=== PATIENT | male | born 1925 | race Hispanic/Latino ===

== ENCOUNTER 2016-09-25 03:05 | Inpatient (IN) | payer MEDICARE ==
[2016-09-25] MEDS ORDERED: ATIVAN IV ONE ×3 (03:40→06:16)
[2016-09-25 04:23] LABS: Basophils % (Auto) 0.4 % (0.0-1.8); Eosinophils % (Auto) 0.4 % (0.0-4.3); Hemoglobin 13.6 gm/dl (11.8-15.2); Mean Corpuscular HGB Conc 34 % (32-34); Mean Corpuscular Hemoglobin 29 pg (28-32); Mean Corpuscular Volume 86 fl (84-94); Platelet Count 226 K/mm3 (140-440); Red Blood Count 4.64 M/mm3 (3.65-5.03); White Blood Count 9.3 K/mm3 (4.5-11.0)
[2016-09-25 04:36] LABS: Alanine Aminotransferase 7 units/L (7-56); Albumin 4.1 g/dL (3.9-5); Albumin/Globulin Ratio 1.6 %; Alkaline Phosphatase 94 units/L (35-129); Anion Gap 20 mmol/L; BUN/Creatinine Ratio 22.22; Bilirubin,Total 0.3 mg/dL (0.1-1.2); Blood Urea Nitrogen 20 mg/dL (9-20); Calcium 8.6 mg/dL (8.4-10.2); Carbon Dioxide 23 mmol/L (22-30); Chloride 103.7 mmol/L (98-107); Glucose 135 mg/dL (75-100); Magnesium 1.9 mg/dL (1.7-2.3); Potassium 3.4 mmol/L (3.6-5.0); Sodium 143 mmol/L (137-145); Total Protein 6.7 g/dL (6.3-8.2)
[2016-09-25] MEDS ORDERED: ATIVAN IM ONE (04:45)
[2016-09-25] MEDS ORDERED: NACL 0.9% 1000 ML 1,000 ML IV ONE (06:16)
--- NOTE | 2016-09-25 07:04 | Cat Scan Report ---
FINAL REPORT EXAM: CT HEAD/BRAIN WO CON HISTORY: ams TECHNIQUE: CT of the head was performed. No intravenous contrast was administered. PRIORS: None. FINDINGS: The inferior images through the skullbase region are limited by motion artifact. There is moderate cerebral atrophy. There is no evidence of intracranial hemorrhage. There is no edema, mass effect or midline shift. There are no abnormal extra-axial fluid collections. The ventricles are appropriate for brain volume. There is no skull fracture seen. The visualized aspects of the sinuses are clear. IMPRESSION: There is no acute intracranial abnormality identified. Study is mildly limited by motion artifact..
--- NOTE | 2016-09-25 07:06 | Cat Scan Report ---
FINAL REPORT EXAM: CT CERVICAL SPINE WO CON HISTORY: fall TECHNIQUE: A noncontrast CT of the cervical spine was performed. Coronal and sagittal reformatted images were obtained. PRIORS: None. FINDINGS: Vertebral body heights and alignment are maintained. There is no evidence of acute fracture. There are moderate degenerative changes involving the facet joints bilaterally. There is no evidence of significant spinal stenosis. IMPRESSION: There is no evidence of cervical spine fracture or subluxation.
--- NOTE | 2016-09-25 07:13 | Emergency Department Report ---
HPI - General Chief Complaint: Altered Mental Status Time Seen by Provider: 09/25/16 06:03 - HPI HPI: This is a 89-year-old male who presents to the emergency department from home via EMS with the complaint of altered mental status and falls. The patient's son is bedside. The patient is a very poor historian currently. Normally the patient takes care of both himself and his elderly . The son says that the patient usually takes Xanax at night at 0.25 mg to help him sleep but he has been out of this medication. For this reason the patient took 4 Benadryl [id number] at about 8 PM and when this did not work he took one of his sons 100 mg amitriptyline at 9 PM. Much later in the evening the son was outside when he heard a thump. The son says that the fall was about 2:00 AM and EMS was called shortly after that. He went in to find that his father had fallen and was on the ground and was having trouble getting back up. Since that time the patient has been confused. He has a past medical history of arthritis, prostate cancer, hypertension. Patient does not currently have a primary care doctor but recently has seen Dr. Heath and Dr. Simon. ED Past Medical Hx - Past Medical History Previous Medical History?: Yes Hx Hypertension: Yes Hx of Cancer: Yes (Prostate) Hx Arthritis: Yes Hx Asthma: No Additional medical history: hernia - Surgical History Past Surgical History?: Yes Additional Surgical History: tonsillectomy. hernia repair. prostate - Social History Smoking Status: Never Smoker Substance Use Type: None - Medications Home Medications: Home Medications Medication Instructions Recorded Confirmed Last Taken Type ALPRAZolam [Xanax TAB] 0.25 mg PO BID PRN 06/27/15 06/27/15 Unknown History Docusate Sodium [Colace CAP] 100 mg PO BID PRN #30 capsule 06/27/15 Unknown Rx Lactulose [Cephulac] 20 gm PO QDAY PRN #90 ml 06/27/15 Unknown Rx Tamsulosin [Flomax] 0.4 mg PO QDAY 06/27/15 06/27/15 Unknown History traMADol [Ultram] 50 mg PO Q6HR PRN 06/27/15 06/27/15 Unknown History ED Review of Systems ROS: Stated complaint: LOC/FALL Other details as noted in HPI Comment: All other systems reviewed and negative Physical Exam - Physical Exam Vital Signs: Vital Signs 09/25/16 09/25/16 03:24 03:35 Temperature 97.4 F L Pulse Rate 122 H Respiratory 24 31 H Rate Blood Pressure 135/59 Blood Pressure 135/59 [Right] O2 Sat by Pulse 95 94 Oximetry Physical Exam: GENERAL: Patient is elderly appearing and altered. HEENT: Normocephalic. Atraumatic. Pupils equal reactive to light bilaterally. Patient has moist mucous membranes. NECK: Supple. Trachea is midline. CHEST/LUNGS: Clear to auscultation. There is no respiratory distress noted. HEART/CARDIOVASCULAR: Regular. There is mild to moderate tachycardia. There is no gallop rub or murmur. ABDOMEN: Abdomen is soft, nontender. Patient has normal bowel sounds. There is no abdominal distention. SKIN: There is no rash. There is no diaphoresis. NEURO: Patient is awake and agitated. Patient gets combative. The patient is not cooperative. No obvious facial droop. Patient is nonverbal. MUSCULOSKELETAL: There is no tenderness or deformity. There is no limitation range of motion as patient is seen moving all of his extremities. There is no evidence of acute injury. ED Course Vital Signs 09/25/16 09/25/16 03:24 03:35 Temperature 97.4 F L Pulse Rate 122 H Respiratory 24 31 H Rate Blood Pressure 135/59 Blood Pressure 135/59 [Right] O2 Sat by Pulse 95 94 Oximetry ED Medical Decision Making - Lab Data Result diagrams: 09/25/16 03:56 09/25/16 03:56 - EKG Data -: EKG Interpreted by Me - EKG Data When compared to previous EKG there are: changes noted (previous EKG did not show sustained tachycardia) Interpretation: other (sinus tachycardia at 125 bpm, prolonged [place] interval indicating first-degree AV block, Q waves to the septal leads, nonspecific ST-T changes) - Radiology Data Radiology results: report reviewed, image reviewed interpreted by me: Chest x-ray does not show any obvious pneumonia, pneumothorax, pleural effusions , osseous abnormalities or any acute process. X-ray of the pelvis does not show any fracture, dislocation, subluxation or any acute process. CT of the head does not show any bleed, shift, mass, skull fracture or any acute process. CT of the cervical spine does not show any fracture, subluxation or any acute process. - Medical Decision Making 89-year-old male presents to the emergency department after having a fall last night and some altered mental status. Patient had taken multiple doses of Benadryl and 1 amitriptyline so it is possible that it is an effect of that, however the patient took them around 8 or 9 PM last night and the medications should have worn off. A CT of the head was done that did not show any bleed, shift, mass or any acute process. CT of the cervical spine, x-ray of the pelvis and chest did not show any acute process either. Patient's labs are mostly unremarkable and did not show any etiology of the patient's altered mental status. Since the patient is usually ambulatory, cognizant and able to complete his own ADLs, the patient will be admitted to hospital for further evaluation and has been accepted for admission by the hospitalist. - Differential Diagnosis brain bleed, skull fracture, anemia, IA Critical Care Time: No Critical care attestation.: If time is entered above; I have spent that time in minutes in the direct care of this critically ill patient, excluding procedure time. ED Disposition Clinical Impression: Altered mental status Qualifiers: Altered mental status type: unspecified Qualified Code(s): R41.82 - Altered mental status, unspecified Fall Qualifiers: Encounter type: initial encounter Qualified Code(s): W19.XXXA - Unspecified fall, initial encounter Disposition: OP ADMITTED IP TO THIS HOSP Is pt being admited?: Yes Condition: Fair Time of Disposition: 09:31
[2016-09-25 07:50] LABS: Urine Drugs of Abuse Note Disclamer
[2016-09-25 08:14] LABS: Bacteria,Urine 2+ /HPF (Negative); Bilirubin,Urine NEG (Negative); Blood,Urine NEG (Negative); Ketones,Urine NEG (Negative); Leukocyte Esterase,Urine NEG (Negative); Mucus,Urine FEW /HPF; Nitrite,Urine NEG (Negative); Protein,Urine <15 mg/dL mg/dL (Negative); Urobilinogen,Urine < 2.0 mg/dL (<2.0)
[2016-09-25 08:16] LABS: WBC,Urine < 1.0 /HPF (0.0-6.0)
--- NOTE | 2016-09-25 09:22 | XRay Report ---
Portable supine chest: There is a generally coarse and diffuse interstitial pulmonary pattern. No pulmonary nodule or infiltrate. The heart is normal in size. No vascular congestion identified. Impression: Chronic appearing lung disease. No acute finding suspected. AP pelvis: Prostate therapy seeds are present. The soft tissues otherwise appear unremarkable. The bones are well-mineralized. No fractures and no displacement is noted. Impression: No traumatic changes.
[2016-09-25] MEDS ORDERED: ASPIRIN PR ONE (10:37)
[2016-09-25] MEDS ORDERED: HEPARIN 10,000 UNITS/10 ML IV ONE (10:41)
[2016-09-25] MEDS ORDERED: HEPARIN/ 0.45% NACL-25,000 UNIT/500 ML 500 ML IV SCH (11:00)
[2016-09-25 11:38] LABS: Partial Thromboplastin Time 23.9 Sec. (24.2-36.6)
[2016-09-25] MEDS ORDERED: CEPHULAC PO PRN (14:27)
[2016-09-25] MEDS ORDERED: COLACE PO PRN (14:27)
[2016-09-25] MEDS ORDERED: TYLENOL PO PRN (14:28)
[2016-09-25] MEDS ORDERED: DULCOLAX PR PRN (14:28)
[2016-09-25] MEDS ORDERED: ZOFRAN IV PRN (14:28)
[2016-09-25] MEDS ORDERED: MILK OF MAGNESIA PO PRN (14:28)
--- NOTE | 2016-09-25 14:36 | History and Physical Report ---
History of Present Illness Chief complaint: fall History of present illness: This is an elderly man who was brought in by his son after his son. From, from his father on the floor. Of note father is currently somewhat confused but his mentation is improving. He notes that his father had taken multiple doses of Benadryl and Xanax for sleep at night. And after his father fell he does not think his father hit head his father was somewhat confused and then became agitated. He denies any chest pain or shortness of breath or palpitations, his father has not had any episodes of this in the past in fact his father actually usually cares for his elderly , he is usually competent at baseline Past History Past Medical History: other (hypertension prostate cancer osteoarthritis) Past Surgical History: Other (tonsillectomy, hernia repair, and prostate surgery ) Social history: no significant social history Family history: no significant family history Medications and Allergies Allergies Allergy/AdvReac Type Severity Reaction Status Date / Time codeine Allergy Unknown Verified 06/27/15 14:25 Home Medications Medication Instructions Recorded Confirmed Last Taken Type ALPRAZolam [Xanax TAB] 0.25 mg PO BID PRN 06/27/15 09/25/16 Unknown History Docusate Sodium [Colace CAP] 100 mg PO BID PRN #30 capsule 06/27/15 09/25/16 Unknown Rx Lactulose [Cephulac] 20 gm PO QDAY PRN #90 ml 06/27/15 09/25/16 Unknown Rx Tamsulosin [Flomax] 0.4 mg PO QDAY 06/27/15 09/25/16 Unknown History traMADol [Ultram] 50 mg PO Q6HR PRN 06/27/15 09/25/16 Unknown History Active Meds: Active Medications Sodium Chloride (Nacl 0.9% 1000 Ml) 1,000 mls @ 100 mls/hr IV ONCE ONE Stop: 09/25/16 16:15 Heparin Sodium/Sodium Chloride (Heparin/ 0.45% Nacl-25,000 Unit/500 Ml) 500 mls @ 15 mls/hr IV TITRATE WANDA; 750 UNITS/HR PRN Reason: Protocol Last Admin: 09/25/16 12:09 Dose: 15 mls/hr Review of Systems All systems: negative Constitutional: weakness Cardiovascular: lightheadedness, no chest pain Neurological: other (confusion) Exam - Constitutional Vitals: Temp Pulse Resp BP Pulse Ox 97.4 F L 115 H 24 113/57 90 09/25/16 03:24 09/25/16 07:37 09/25/16 07:37 09/25/16 07:37 09/25/16 07:37 General appearance: Present: no acute distress, well-nourished - EENT Eyes: Present: PERRL ENT: hearing intact, clear oral mucosa - Neck Neck: Present: supple, normal ROM - Respiratory Respiratory effort: normal Respiratory: bilateral: CTA - Cardiovascular Heart Sounds: Present: S1 & S2. Absent: rub, click - Extremities Extremities: pulses symmetrical, No edema Peripheral Pulses: within normal limits - Abdominal General gastrointestinal: Present: soft, non-tender, non-distended, normal bowel sounds Male genitourinary: Present: normal - Integumentary Integumentary: Present: clear, warm, dry - Musculoskeletal Musculoskeletal: gait normal, strength equal bilaterally - Psychiatric Psychiatric: appropriate mood/affect, intact judgment & insight - Neurologic Neurologic: CNII-XII intact, moves all extremities, other (altered, somnolent, confused) Results - Labs CBC & Chem 7: 09/26/16 05:08 09/26/16 05:08 Labs: Laboratory Last Values WBC 9.3 K/mm3 (4.5-11.0) 09/25/16 03:56 RBC 4.64 M/mm3 (3.65-5.03) 09/25/16 03:56 Hgb 13.6 gm/dl (11.8-15.2) 09/25/16 03:56 Hct 40.0 % (35.5-45.6) 09/25/16 03:56 MCV 86 fl (84-94) 09/25/16 03:56 MCH 29 pg (28-32) 09/25/16 03:56 MCHC 34 % (32-34) 09/25/16 03:56 RDW 14.0 % (13.2-15.2) 09/25/16 03:56 Plt Count 226 K/mm3 (140-440) 09/25/16 03:56 Lymph % (Auto) 7.5 % (13.4-35.0) L 09/25/16 03:56 [place] % (Auto) 4.4 % (0.0-7.3) 09/25/16 03:56 Eos % (Auto) 0.4 % (0.0-4.3) 09/25/16 03:56 Baso % (Auto) 0.4 % (0.0-1.8) 09/25/16 03:56 Lymph # 0.7 K/mm3 (1.2-5.4) L 09/25/16 03:56 [place] # 0.4 K/mm3 (0.0-0.8) 09/25/16 03:56 Eos # 0.0 K/mm3 (0.0-0.4) 09/25/16 03:56 Baso # 0.0 K/mm3 (0.0-0.1) 09/25/16 03:56 Seg Neutrophils % 87.3 % (40.0-70.0) H 09/25/16 03:56 Seg Neutrophils # 8.1 K/mm3 (1.8-7.7) H 09/25/16 03:56 PT 13.1 Sec. (12.2-14.9) 09/25/16 11:00 INR 1.00 (0.87-1.13) 09/25/16 11:00 APTT 23.9 Sec. (24.2-36.6) L 09/25/16 11:00 Sodium 143 mmol/L (137-145) 09/25/16 03:56 Potassium 3.4 mmol/L (3.6-5.0) L 09/25/16 03:56 Chloride 103.7 mmol/L (98-107) 09/25/16 03:56 Carbon Dioxide 23 mmol/L (22-30) 09/25/16 03:56 Anion Gap 20 mmol/L 09/25/16 03:56 BUN 20 mg/dL (9-20) 09/25/16 03:56 Creatinine 0.9 mg/dL (0.8-1.5) 09/25/16 03:56 Estimated GFR > 60 ml/min 09/25/16 03:56 BUN/Creatinine Ratio 22.22 % 09/25/16 03:56 Glucose 135 mg/dL (75-100) H 09/25/16 03:56 Lactic Acid 1.0 mmol/L (0.7-2.0) 09/25/16 06:52 Calcium 8.6 mg/dL (8.4-10.2) 09/25/16 03:56 Magnesium 1.9 mg/dL (1.7-2.3) 09/25/16 03:56 Total Bilirubin 0.3 mg/dL (0.1-1.2) 09/25/16 03:56 AST 16 units/L (5-40) 09/25/16 03:56 ALT 7 units/L (7-56) 09/25/16 03:56 Alkaline Phosphatase 94 units/L (35-129) 09/25/16 03:56 Troponin T 0.359 ng/mL (0.00-0.029) H* 09/25/16 09:47 Total Protein 6.7 g/dL (6.3-8.2) 09/25/16 03:56 Albumin 4.1 g/dL (3.9-5) 09/25/16 03:56 Albumin/Globulin Ratio 1.6 % 09/25/16 03:56 Triglycerides 53 mg/dL (2-149) 09/25/16 09:47 Cholesterol 163 mg/dL (50-199) 09/25/16 09:47 LDL Cholesterol Direct 93 mg/dL (50-130) 09/25/16 09:47 HDL Cholesterol 60 mg/dL (40-59) H 09/25/16 09:47 Cholesterol/HDL Ratio 2.71 % 09/25/16 09:47 TSH 1.420 mlU/mL (0.270-4.200) 09/25/16 06:52 Urine Color Yellow (Yellow) 09/25/16 07:23 Urine Turbidity Cloudy (Clear) 09/25/16 07:23 Urine pH 7.0 (5.0-7.0) 09/25/16 07:23 Ur Specific [place] 1.017 (1.003-1.030) 09/25/16 07:23 Urine Protein <15 mg/dl mg/dL (Negative) 09/25/16 07:23 Urine Glucose (UA) 50 mg/dL (Negative) 09/25/16 07:23 Urine Ketones Neg mg/dL (Negative) 09/25/16 07:23 Urine Blood Neg (Negative) 09/25/16 07:23 Urine Nitrite Neg (Negative) 09/25/16 07:23 Urine Bilirubin Neg (Negative) 09/25/16 07:23 Urine Urobilinogen < 2.0 mg/dL (<2.0) 09/25/16 07:23 Ur Leukocyte Esterase Neg (Negative) 09/25/16 07:23 Urine WBC (Auto) < 1.0 /HPF (0.0-6.0) 09/25/16 07:23 Urine RBC (Auto) 4.0 /HPF (0.0-6.0) 09/25/16 07:23 U Epithel Cells (Auto) 2.0 /HPF (0-13.0) 09/25/16 07:23 Urine Bacteria (Auto) 2+ /HPF (Negative) 09/25/16 07:23 Amorphous Crystals 1+ 09/25/16 07:23 Urine Mucus Few /HPF 09/25/16 07:23 Salicylates < 0.3 mg/dL (2.8-20.0) L 09/25/16 03:56 Urine Opiates Screen Presumptive negative 09/25/16 07:23 Urine Methadone Screen Presumptive negative 09/25/16 07:23 Acetaminophen < 15.0 ug/mL (10.0-30.0) 09/25/16 03:56 Ur Barbiturates Screen Presumptive negative 09/25/16 07:23 Ur Phencyclidine Scrn Presumptive negative 09/25/16 07:23 Ur Amphetamines Screen Presumptive negative 09/25/16 07:23 U Benzodiazepines Scrn Presumptive negative 09/25/16 07:23 Urine Cocaine Screen Presumptive negative 09/25/16 07:23 U Marijuana (THC) Screen Presumptive negative 09/25/16 07:23 Drugs of Abuse Note Disclamer 09/25/16 07:23 Plasma/Serum Alcohol < 0.01 gm% (0-0.07) 09/25/16 03:56 - Imaging and Cardiology Chest x-ray: image reviewed (no abnormalities noted) CT Scan - head: image reviewed (limited due to motion artifact, but no abnormalities noted) Imaging and Cardiology: CT C-spine, reviewed by me, no fractures or subluxation noted Assessment and Plan Assessment and plan: This is an elderly man who presented status post fall found to be confused of note is that have been set that patient had been taking Xanax and Benadryl multiple doses of night at this occurred. Another concern it was medication related to him falling and being confused 1. NSTEMI Aspirin has been started, Patient that she denies chest pain, cycle troponins, cardiology consult, echocardiogram and stress test in the morning 2. Syncope May be secondary to end STEMI, versus iatrogenic due to using Benadryl and Xanax , continue cardiac workup as above, hold Xanax and Benadryl 3. Hypertension Currently normotensive, monitor blood pressure curve , no need for meds at this time 4. Prostate cancer Continue Flomax 5. Chronic constipation Continue stool softeners 6. DVT prophylaxis Lovenox subcutaneous Plan of care discussed with patient/family: Yes
[2016-09-25 15:44] LABS: Creatine Kinase MB 132.4 ng/mL (0.0-4.0)
[2016-09-25 18:28] LABS: Creatine Kinase MB 124.2 ng/mL (0.0-4.0)
[2016-09-25 21:01] LABS: Creatine Kinase MB 117.1 ng/mL (0.0-4.0)
[2016-09-26] MEDS ORDERED: BENADRYL IV ONE (02:57)
[2016-09-26 06:01] LABS: Basophils % (Auto) 0.5 % (0.0-1.8); Eosinophils % (Auto) 0.6 % (0.0-4.3); Hemoglobin 12.7 gm/dl (11.8-15.2); Mean Corpuscular HGB Conc 34 % (32-34); Mean Corpuscular Hemoglobin 29 pg (28-32); Mean Corpuscular Volume 86 fl (84-94); Platelet Count 206 K/mm3 (140-440); Red Blood Count 4.33 M/mm3 (3.65-5.03); Red Cell Distribution Width 14.3 % (13.2-15.2); White Blood Count 8.2 K/mm3 (4.5-11.0)
[2016-09-26 06:22] LABS: Anion Gap 18 mmol/L; Blood Urea Nitrogen 16 mg/dL (9-20); Calcium 8.2 mg/dL (8.4-10.2); Carbon Dioxide 21 mmol/L (22-30); Chloride 109.2 mmol/L (98-107); Glucose 96 mg/dL (75-100); Potassium 3.5 mmol/L (3.6-5.0); Sodium 145 mmol/L (137-145)
--- NOTE | 2016-09-26 11:27 | Progress Note ---
Assessment and Plan Assessment and plan: This is an elderly man who presented status post fall found to be confused of note is that have been set that patient had been taking Xanax and Benadryl multiple doses of night at this occurred. Another concern it was medication related to him falling and being confused 1. NSTEMI Aspirin has been started, Patient that she denies chest pain, cycle troponins, cardiology consult, echocardiogram , cardiology will likely do MPI when his troponins have cycled down 2. Syncope May be secondary to NSTEMI, versus iatrogenic due to using over the counter sleep meds and Xanax, continue cardiac workup as above, hold Xanax and Benadryl 3. Hypertension Currently normotensive, monitor blood pressure curve , hold all BP meds 4. Prostate cancer Continue Flomax 5. Chronic constipation Continue stool softeners 6. DVT prophylaxis Lovenox subcutaneous 7. Hypokalemia was repleted 8. Delireum continue restraints, and PRN meds for severe agitation only History Interval history: Patient continues to be confused and agitated. He has not been following commands and was screaming and cursing at nursing staff ; he refused all tests this am Hospitalist Physical - Physical exam Narrative exam: General: Patient appears well in no distress HEENT: MMM, EOMI cardiac: S1-S2 heard lungs: clear to auscultation, abdomen: soft, nontender, nondistended bowel sounds positive extremities: no edema clubbing or cyanosis Skin: no rash or lesion Neuro: Moves all extremities Psych: Patient is confused and agitated, - Constitutional Vitals: Temp Pulse Resp BP Pulse Ox 97.9 F 90 20 120/59 94 09/26/16 07:30 09/26/16 07:30 09/26/16 07:30 09/26/16 07:30 09/26/16 07:30 General appearance: Present: no acute distress, well-nourished Results - Labs CBC & Chem 7: 09/27/16 04:48 09/26/16 05:08 Labs: Laboratory Last Values WBC 8.2 K/mm3 (4.5-11.0) 09/26/16 05:08 RBC 4.33 M/mm3 (3.65-5.03) 09/26/16 05:08 Hgb 12.7 gm/dl (11.8-15.2) 09/26/16 05:08 Hct 37.0 % (35.5-45.6) 09/26/16 05:08 MCV 86 fl (84-94) 09/26/16 05:08 MCH 29 pg (28-32) 09/26/16 05:08 MCHC 34 % (32-34) 09/26/16 05:08 RDW 14.3 % (13.2-15.2) 09/26/16 05:08 Plt Count 206 K/mm3 (140-440) 09/26/16 05:08 Lymph % (Auto) 13.2 % (13.4-35.0) L 09/26/16 05:08 [place] % (Auto) 6.4 % (0.0-7.3) 09/26/16 05:08 Eos % (Auto) 0.6 % (0.0-4.3) 09/26/16 05:08 Baso % (Auto) 0.5 % (0.0-1.8) 09/26/16 05:08 Lymph # 1.1 K/mm3 (1.2-5.4) L 09/26/16 05:08 [place] # 0.5 K/mm3 (0.0-0.8) 09/26/16 05:08 Eos # 0.0 K/mm3 (0.0-0.4) 09/26/16 05:08 Baso # 0.0 K/mm3 (0.0-0.1) 09/26/16 05:08 Seg Neutrophils % 79.3 % (40.0-70.0) H 09/26/16 05:08 Seg Neutrophils # 6.5 K/mm3 (1.8-7.7) 09/26/16 05:08 PT 13.1 Sec. (12.2-14.9) 09/25/16 11:00 INR 1.00 (0.87-1.13) 09/25/16 11:00 APTT 23.9 Sec. (24.2-36.6) L 09/25/16 11:00 Heparin Anti-Xa Level 0.25 U.I./ml (0.3-0.7) L 09/26/16 00:50 Sodium 145 mmol/L (137-145) 09/26/16 05:08 Potassium 3.5 mmol/L (3.6-5.0) L 09/26/16 05:08 Chloride 109.2 mmol/L (98-107) H 09/26/16 05:08 Carbon Dioxide 21 mmol/L (22-30) L 09/26/16 05:08 Anion Gap 18 mmol/L 09/26/16 05:08 BUN 16 mg/dL (9-20) 09/26/16 05:08 Creatinine 0.8 mg/dL (0.8-1.5) 09/26/16 05:08 Estimated GFR > 60 ml/min 09/26/16 05:08 BUN/Creatinine Ratio 20.00 % 09/26/16 05:08 Glucose 96 mg/dL (75-100) 09/26/16 05:08 Lactic Acid 1.0 mmol/L (0.7-2.0) 09/25/16 06:52 Calcium 8.2 mg/dL (8.4-10.2) L 09/26/16 05:08 Magnesium 1.9 mg/dL (1.7-2.3) 09/25/16 03:56 Total Bilirubin 0.3 mg/dL (0.1-1.2) 09/25/16 03:56 AST 16 units/L (5-40) 09/25/16 03:56 ALT 7 units/L (7-56) 09/25/16 03:56 Alkaline Phosphatase 94 units/L (35-129) 09/25/16 03:56 Total Creatine Kinase 810 units/L (55-170) H 09/25/16 20:25 CK-MB (CK-2) 117.1 ng/mL (0.0-4.0) H 09/25/16 20:25 CK-MB (CK-2) Rel Index 14.4 (0-4) H 09/25/16 20:25 Troponin T 0.514 ng/mL (0.00-0.029) H* D 09/25/16 20:25 Total Protein 6.7 g/dL (6.3-8.2) 09/25/16 03:56 Albumin 4.1 g/dL (3.9-5) 09/25/16 03:56 Albumin/Globulin Ratio 1.6 % 09/25/16 03:56 Triglycerides 53 mg/dL (2-149) 09/25/16 09:47 Cholesterol 163 mg/dL (50-199) 09/25/16 09:47 LDL Cholesterol Direct 93 mg/dL (50-130) 09/25/16 09:47 HDL Cholesterol 60 mg/dL (40-59) H 09/25/16 09:47 Cholesterol/HDL Ratio 2.71 % 09/25/16 09:47 TSH 1.420 mlU/mL (0.270-4.200) 09/25/16 06:52 Urine Color Yellow (Yellow) 09/25/16 07:23 Urine Turbidity Cloudy (Clear) 09/25/16 07:23 Urine pH 7.0 (5.0-7.0) 09/25/16 07:23 Ur Specific [place] 1.017 (1.003-1.030) 09/25/16 07:23 Urine Protein <15 mg/dl mg/dL (Negative) 09/25/16 07:23 Urine Glucose (UA) 50 mg/dL (Negative) 09/25/16 07:23 Urine Ketones Neg mg/dL (Negative) 09/25/16 07:23 Urine Blood Neg (Negative) 09/25/16 07:23 Urine Nitrite Neg (Negative) 09/25/16 07:23 Urine Bilirubin Neg (Negative) 09/25/16 07:23 Urine Urobilinogen < 2.0 mg/dL (<2.0) 09/25/16 07:23 Ur Leukocyte Esterase Neg (Negative) 09/25/16 07:23 Urine WBC (Auto) < 1.0 /HPF (0.0-6.0) 09/25/16 07:23 Urine RBC (Auto) 4.0 /HPF (0.0-6.0) 09/25/16 07:23 U Epithel Cells (Auto) 2.0 /HPF (0-13.0) 09/25/16 07:23 Urine Bacteria (Auto) 2+ /HPF (Negative) 09/25/16 07:23 Amorphous Crystals 1+ 09/25/16 07:23 Urine Mucus Few /HPF 09/25/16 07:23 Salicylates < 0.3 mg/dL (2.8-20.0) L 09/25/16 03:56 Urine Opiates Screen Presumptive negative 09/25/16 07:23 Urine Methadone Screen Presumptive negative 09/25/16 07:23 Acetaminophen < 15.0 ug/mL (10.0-30.0) 09/25/16 03:56 Ur Barbiturates Screen Presumptive negative 09/25/16 07:23 Ur Phencyclidine Scrn Presumptive negative 09/25/16 07:23 Ur Amphetamines Screen Presumptive negative 09/25/16 07:23 U Benzodiazepines Scrn Presumptive negative 09/25/16 07:23 Urine Cocaine Screen Presumptive negative 09/25/16 07:23 U Marijuana (THC) Screen Presumptive negative 09/25/16 07:23 Drugs of Abuse Note Disclamer 09/25/16 07:23 Plasma/Serum Alcohol < 0.01 gm% (0-0.07) 09/25/16 03:56
[2016-09-26] MEDS ORDERED: K-DUR PO ONE (12:00)
--- NOTE | 2016-09-26 14:01 | Consultation ---
History of Present Illness Consult date: 09/26/16 Requesting physician: OH SALCIDO Consult reason: abnormal cardiac enzymes History of present illness: The history was obtained from a review of the medical chart since the patient is currently confused. The patient was apparently brought to the emergency department by his son after sustaining a fall. He had reportedly taken multiple doses of Benadryl as well as Xanax. He was heard to have fallen and subsequently became confused. Brain CT scan did not show any acute findings. CT scan of the cervical spine was unremarkable. Pelvic x-rays did not show any fracture. However, cardiac enzymes are positive for acute non-ST segment elevation myocardial infarction. Past History Past Medical History: arthritis, hypertension, other (prostate cancer) Past Surgical History: hernia repair, tonsillectomy, Other (prostate surgery) Social history: no significant social history Family history: no significant family history Medications and Allergies Allergies Allergy/AdvReac Type Severity Reaction Status Date / Time codeine Allergy Unknown Verified 06/27/15 14:25 Home Medications Medication Instructions Recorded Confirmed Last Taken Type ALPRAZolam [Xanax TAB] 0.25 mg PO BID PRN 06/27/15 09/25/16 Unknown History Docusate Sodium [Colace CAP] 100 mg PO BID PRN #30 capsule 06/27/15 09/25/16 Unknown Rx Lactulose [Cephulac] 20 gm PO QDAY PRN #90 ml 06/27/15 09/25/16 Unknown Rx Tamsulosin [Flomax] 0.4 mg PO QDAY 06/27/15 09/25/16 Unknown History traMADol [Ultram] 50 mg PO Q6HR PRN 06/27/15 09/25/16 Unknown History Active Meds: Active Medications Acetaminophen (Tylenol) 650 mg PO Q4H PRN PRN Reason: Pain MILD(1-3)/Fever >100.5/ADAMS Aspirin (Aspirin) 325 mg PO QDAY WANDA Bisacodyl (Dulcolax) 10 mg [place] QDAY PRN PRN Reason: Constipation unrelieved by MOM Docusate Sodium (Colace) 100 mg PO BID PRN PRN Reason: Constipation Enoxaparin Sodium (Lovenox) 40 mg SUB-Q QDAY WANDA Sodium Chloride (Nacl 0.9% 1000 Ml) 1,000 mls @ 75 mls/hr IV DIRECT WANDA Lactulose (Cephulac) 20 gm PO QDAY PRN PRN Reason: Constipation Magnesium Hydroxide (Milk Of Magnesia) 30 ml PO Q4H PRN PRN Reason: Constipation Morphine Sulfate (Morphine) 2 mg IV Q4H PRN PRN Reason: Pain, Moderate (4-6) Ondansetron HCl (Zofran) 4 mg IV Q8H PRN PRN Reason: N/V unrelieved by Reglan Tamsulosin HCl (Flomax) 0.4 mg PO QDAY WANDA Review of Systems ROS unobtainable: due to mental status Physical Examination Vital Signs Last Vital Signs Temp 97.9 F 09/26/16 07:30 Pulse 90 09/26/16 07:30 Resp 20 09/26/16 07:30 BP 120/59 09/26/16 07:30 Pulse Ox 94 09/26/16 07:30 General appearance: no acute distress HEENT: Positive: EOMI, Normocephaly, Mucus Membranes Moist Neck: Positive: neck supple, trachea midline Cardiac: Positive: Reg Rate and Rhythm, S1/S2 Lungs: Positive: clear to auscultation Neuro: Positive: Other (confused and agitated. Moves all extremities spontaneously.) Abdomen: Positive: Soft, Active Bowel Sounds. Negative: Tender Skin: Positive: Clear. Negative: Rash Musculoskeletal: Normal Range of Motion Extremities: Present: normal. Absent: edema Results 09/26/16 05:08 09/26/16 05:08 Cardiac Enzymes 09/25/16 09/25/16 09/25/16 Range/Units 14:39 17:49 20:25 CK-MB (CK-2) 132.4 H 124.2 H 117.1 H (0.0-4.0) ng/mL CBC 09/26/16 Range/Units 05:08 WBC 8.2 (4.5-11.0) K/mm3 RBC 4.33 (3.65-5.03) M/mm3 Hgb 12.7 (11.8-15.2) gm/dl Hct 37.0 (35.5-45.6) % Plt Count 206 (140-440) K/mm3 Lymph # 1.1 L (1.2-5.4) K/mm3 [place] # 0.5 (0.0-0.8) K/mm3 Eos # 0.0 (0.0-0.4) K/mm3 Baso # 0.0 (0.0-0.1) K/mm3 Comprehensive Metabolic Panel 09/26/16 Range/Units 05:08 Sodium 145 (137-145) mmol/L Potassium 3.5 L (3.6-5.0) mmol/L Chloride 109.2 H (98-107) mmol/L Carbon Dioxide 21 L (22-30) mmol/L BUN 16 (9-20) mg/dL Creatinine 0.8 (0.8-1.5) mg/dL Glucose 96 (75-100) mg/dL Calcium 8.2 L (8.4-10.2) mg/dL - Imaging and Cardiology EKG: image reviewed EKG interpretations - Telemetry EKG Rhythm: 1st Degree HB - EKG Sinus rhythms and dysrhythmias: sinus tachycardia Repolarization changes or abnormalities: ST or T wave suggestive of ischemia Myocardial infarction: septal [place] (old age or ind Assessment and Plan I will place him on anti-ischemic regimen. Obtain echocardiogram. Considering his mental status, I will defer ischemia evaluation until his neurologic status has stabilized. - Patient Problems (1) Acute non-ST elevation myocardial infarction (NSTEMI) Current Visit: Yes Status: Acute (2) Fall Current Visit: Yes Status: Acute Qualifiers: Encounter type: initial encounter Qualified Code(s): W19.XXXA - Unspecified fall, initial encounter (3) Confusion Current Visit: Yes Status: Acute
[2016-09-26] MEDS: FLOMAX PO SCH (16:02)
[2016-09-26] MEDS: ASPIRIN PO SCH (16:03)
[2016-09-26] MEDS: ATIVAN IV PRN ×2 (16:43→22:00)
--- NOTE | 2016-09-26 18:06 | Echocardiography Report ---
Transthoracic Echocardiogram Indication: Nstemi BP: 108/57 Conclusions *There is trace mitral regurgitation. *There is mild tricuspid regurgitation. *There is mild aortic regurgitation. *The left ventricular chamber size is normal. *Moderate concentric left ventricular hypertrophy is observed. *Global left ventricular systolic function is severely decreased. *The estimated ejection fraction is 25-30%. *Abnormal left ventricular diastolic filling is observed, consistent with impaired relaxation. *The right ventricular chamber size and systolic function are within normal limits. Findings Left Ventricle: The left ventricular chamber size is normal. Moderate concentric left ventricular hypertrophy is observed. Severe global hypokinesis of the left ventricle is observed. Global left ventricular systolic function is severely decreased. The estimated ejection fraction is 25-30%. Abnormal left ventricular diastolic filling is observed, consistent with impaired relaxation. Left Atrium: The left atrium is normal in size with no visual thrombus identified. Right Ventricle: The right ventricular chamber size and systolic function are within normal limits. Right Atrium: The right atrial cavity size is normal. A prominent eustachian valve is noted in the right atrium. The interatrial septum appears normal. Aortic Valve: The aortic valve leaflets are mildly thickened. Mild aortic leaflet calcification is visualized. There is mild aortic regurgitation. There is no evidence of aortic stenosis. Mitral Valve: The mitral valve leaflets are mildly thickened. There is trace of mitral regurgitation. There is no evidence of mitral stenosis. Tricuspid Valve: The tricuspid valve leaflets are normal. There is mild tricuspid regurgitation. The right ventricular systolic pressure is calculated at 27 mmHg. There is no tricuspid stenosis. Pulmonic Valve: The pulmonic valve is not well visualized. The pulmonic valve appears normal. There is no evidence of pulmonic regurgitation. There is no pulmonic stenosis. Pericardium: There is no pericardial effusion. Aorta: There is no dilatation of the ascending aorta. There is no dilatation of the aortic root. Venous: The inferior vena cava appears normal in size. There is less than 50% respiratory change in the inferior vena cava dimension. Measurements Chambers MM Name Value Normal Range Ao root diameter (MM) 3.6 cm (2 - 3.7) LA dimension (AP) MM 3 cm (1.9 - 4) LA:Ao ratio (MM) 0.83 ratio - AV cusp separation (MM) 2.2 cm (1.5 - 2.6) Chambers 2D Name Value Normal Range IVSd (2D) 1.52 cm (0.6 - 1.1) LVPWd (2D) 1.47 cm (0.6 - 1.1) IVS:LVPW ratio (2D) 1.03 ratio - LVIDd (2D) 5.12 cm (3.7 - 5.6) LVIDs (2D) 4.03 cm (2 - 3.8) LV FS (Teichholz) (2D) 21.3 % - LV FS (cube) (2D) 21.3 % - EF Teichholz (2D) 43 % - Ao root diameter (2D) 3.1 cm (2 - 3.7) LA dimension (AP) 2D 3.1 cm (1.9 - 4) LA:Ao ratio (2D) 1 ratio - Volumes/Mass Name Value Normal Range LA ESV SP 4CH (MOD) 22 ml - LA ESV SP 2CH (MOD) 33 ml - LA ESV BP (MOD) 29 ml - LA ESV BP (MOD) index 17.9 ml/m2 - LV EDV SP 4CH (MOD) 97 ml - LV ESV SP 4CH (MOD) 60 ml - EF SP 4CH (MOD) 38 % - LV EDV SP 2CH (MOD) 65 ml - LV ESV SP 2CH (MOD) 44 ml - EF SP 2CH (MOD) 32 % - LV EDV BP 80 ml - LV ESV BP 53 ml - BP EF (MOD) 34 % - Diastolic/Systolic Function Name Value Normal Range MV E-wave Vmax 0.72 m/sec - MV deceleration time 141 msec - MV A-wave Vmax 1.17 m/sec - MV E:A ratio 0.6 ratio - LV septal e' Vmax 0.04 m/sec - LV lateral e' Vmax 0.04 m/sec - LV E:e' septal ratio 16.3 ratio - LV E:e' lateral ratio 16.1 ratio - Aortic Valve Name Value Normal Range AV VTI 34.8 cm - AV peak gradient 21 mmHg - AV mean gradient 12 mmHg - LVOT diameter 2.1 cm - LVOT VTI 19.8 cm - LVOT mean gradient 3 mmHg - SV LVOT 69 ml - OUSMANE (continuity VTI) 1.97 cm2 - Mitral Valve Name Value Normal Range MV PHT 37 msec - MVA (PHT) 5.95 cm2 - Tricuspid Valve Name Value Normal Range TR Vmax 2.17 m/sec - TR peak gradient 19 mmHg - RAP 8 mmHg - RVSP 27 mmHg -
[2016-09-26] MEDS: LOVENOX SUB-Q SCH (18:13)
[2016-09-26] MEDS: LOPRESSOR PO SCH (22:01)
[2016-09-26] MEDS: NACL 0.9% 1000 ML 1,000 ML IV SCH (22:21)
[2016-09-27 05:49] LABS: Hematocrit 39.4 % (35.5-45.6); Hemoglobin 13.5 gm/dl (11.8-15.2)
[2016-09-27] MEDS: ATIVAN IV PRN ×2 (06:02→22:39)
[2016-09-27] MEDS: LOVENOX SUB-Q SCH (09:49)
[2016-09-27] MEDS: ASPIRIN PO SCH (10:03)
[2016-09-27] MEDS: LOPRESSOR PO SCH ×2 (10:04→22:31)
[2016-09-27] MEDS: FLOMAX PO SCH (10:04)
--- NOTE | 2016-09-27 10:40 | Progress Note ---
Assessment and Plan Assessment and plan: This is an elderly man who presented status post fall found to be confused of note is that have been set that patient had been taking Xanax and Benadryl multiple doses of night at this occurred. Another concern it was medication related to him falling and being confused 1. NSTEMI Aspirin has been started, Patient that she denies chest pain, cycle troponins, cardiology consult, echocardiogram , cardiology will likely do MPI when his troponins have cycled down 2. Syncope May be secondary to NSTEMI, versus iatrogenic due to using over the counter sleep meds and Xanax, continue cardiac workup as above, hold Xanax and Benadryl 3. Hypertension Currently normotensive, monitor blood pressure curve , hold all BP meds 4. Prostate cancer Continue Flomax 5. Chronic constipation Continue stool softeners 6. DVT prophylaxis Lovenox subcutaneous 7. Hypokalemia was repleted 8. Delireum continue restraints, and PRN meds for severe agitation only History Interval history: Still confused, less agitated, has been calm today Hospitalist Physical - Physical exam Narrative exam: General: Patient appears well in no distress HEENT: MMM, EOMI cardiac: S1-S2 heard lungs: clear to auscultation, abdomen: soft, nontender, nondistended bowel sounds positive extremities: no edema clubbing or cyanosis Skin: no rash or lesion Neuro: Moves all extremities Psych: Patient is confused, oriented x1 and calm - Constitutional Vitals: Temp Pulse Resp BP Pulse Ox 97.1 F L 84 20 100/60 99 09/27/16 08:00 09/27/16 09:33 09/27/16 10:00 09/27/16 08:00 09/27/16 09:33 General appearance: Present: no acute distress, well-nourished Results - Labs CBC & Chem 7: 09/27/16 04:48 09/26/16 05:08 Labs: Laboratory Last Values WBC 8.2 K/mm3 (4.5-11.0) 09/26/16 05:08 RBC 4.33 M/mm3 (3.65-5.03) 09/26/16 05:08 Hgb 13.5 gm/dl (11.8-15.2) 09/27/16 04:48 Hct 39.4 % (35.5-45.6) 09/27/16 04:48 MCV 86 fl (84-94) 09/26/16 05:08 MCH 29 pg (28-32) 09/26/16 05:08 MCHC 34 % (32-34) 09/26/16 05:08 RDW 14.3 % (13.2-15.2) 09/26/16 05:08 Plt Count 210 K/mm3 (140-440) 09/27/16 04:48 Lymph % (Auto) 13.2 % (13.4-35.0) L 09/26/16 05:08 Major % (Auto) 6.4 % (0.0-7.3) 09/26/16 05:08 Eos % (Auto) 0.6 % (0.0-4.3) 09/26/16 05:08 Baso % (Auto) 0.5 % (0.0-1.8) 09/26/16 05:08 Lymph # 1.1 K/mm3 (1.2-5.4) L 09/26/16 05:08 Major # 0.5 K/mm3 (0.0-0.8) 09/26/16 05:08 Eos # 0.0 K/mm3 (0.0-0.4) 09/26/16 05:08 Baso # 0.0 K/mm3 (0.0-0.1) 09/26/16 05:08 Seg Neutrophils % 79.3 % (40.0-70.0) H 09/26/16 05:08 Seg Neutrophils # 6.5 K/mm3 (1.8-7.7) 09/26/16 05:08 PT 13.1 Sec. (12.2-14.9) 09/25/16 11:00 INR 1.00 (0.87-1.13) 09/25/16 11:00 APTT 23.9 Sec. (24.2-36.6) L 09/25/16 11:00 Heparin Anti-Xa Level 0.25 U.I./ml (0.3-0.7) L 09/26/16 00:50 Sodium 145 mmol/L (137-145) 09/26/16 05:08 Potassium 3.5 mmol/L (3.6-5.0) L 09/26/16 05:08 Chloride 109.2 mmol/L (98-107) H 09/26/16 05:08 Carbon Dioxide 21 mmol/L (22-30) L 09/26/16 05:08 Anion Gap 18 mmol/L 09/26/16 05:08 BUN 16 mg/dL (9-20) 09/26/16 05:08 Creatinine 0.8 mg/dL (0.8-1.5) 09/26/16 05:08 Estimated GFR > 60 ml/min 09/26/16 05:08 BUN/Creatinine Ratio 20.00 % 09/26/16 05:08 Glucose 96 mg/dL (75-100) 09/26/16 05:08 Lactic Acid 1.0 mmol/L (0.7-2.0) 09/25/16 06:52 Calcium 8.2 mg/dL (8.4-10.2) L 09/26/16 05:08 Magnesium 1.9 mg/dL (1.7-2.3) 09/25/16 03:56 Total Bilirubin 0.3 mg/dL (0.1-1.2) 09/25/16 03:56 AST 16 units/L (5-40) 09/25/16 03:56 ALT 7 units/L (7-56) 09/25/16 03:56 Alkaline Phosphatase 94 units/L (35-129) 09/25/16 03:56 Total Creatine Kinase 810 units/L (55-170) H 09/25/16 20:25 CK-MB (CK-2) 117.1 ng/mL (0.0-4.0) H 09/25/16 20:25 CK-MB (CK-2) Rel Index 14.4 (0-4) H 09/25/16 20:25 Troponin T 0.514 ng/mL (0.00-0.029) H* D 09/25/16 20:25 Total Protein 6.7 g/dL (6.3-8.2) 09/25/16 03:56 Albumin 4.1 g/dL (3.9-5) 09/25/16 03:56 Albumin/Globulin Ratio 1.6 % 09/25/16 03:56 Triglycerides 53 mg/dL (2-149) 09/25/16 09:47 Cholesterol 163 mg/dL (50-199) 09/25/16 09:47 LDL Cholesterol Direct 93 mg/dL (50-130) 09/25/16 09:47 HDL Cholesterol 60 mg/dL (40-59) H 09/25/16 09:47 Cholesterol/HDL Ratio 2.71 % 09/25/16 09:47 TSH 1.420 mlU/mL (0.270-4.200) 09/25/16 06:52 Urine Color Yellow (Yellow) 09/25/16 07:23 Urine Turbidity Cloudy (Clear) 09/25/16 07:23 Urine pH 7.0 (5.0-7.0) 09/25/16 07:23 Ur Specific [place] 1.017 (1.003-1.030) 09/25/16 07:23 Urine Protein <15 mg/dl mg/dL (Negative) 09/25/16 07:23 Urine Glucose (UA) 50 mg/dL (Negative) 09/25/16 07:23 Urine Ketones Neg mg/dL (Negative) 09/25/16 07:23 Urine Blood Neg (Negative) 09/25/16 07:23 Urine Nitrite Neg (Negative) 09/25/16 07:23 Urine Bilirubin Neg (Negative) 09/25/16 07:23 Urine Urobilinogen < 2.0 mg/dL (<2.0) 09/25/16 07:23 Ur Leukocyte Esterase Neg (Negative) 09/25/16 07:23 Urine WBC (Auto) < 1.0 /HPF (0.0-6.0) 09/25/16 07:23 Urine RBC (Auto) 4.0 /HPF (0.0-6.0) 09/25/16 07:23 U Epithel Cells (Auto) 2.0 /HPF (0-13.0) 09/25/16 07:23 Urine Bacteria (Auto) 2+ /HPF (Negative) 09/25/16 07:23 Amorphous Crystals 1+ 09/25/16 07:23 Urine Mucus Few /HPF 09/25/16 07:23 Salicylates < 0.3 mg/dL (2.8-20.0) L 09/25/16 03:56 Urine Opiates Screen Presumptive negative 09/25/16 07:23 Urine Methadone Screen Presumptive negative 09/25/16 07:23 Acetaminophen < 15.0 ug/mL (10.0-30.0) 09/25/16 03:56 Ur Barbiturates Screen Presumptive negative 09/25/16 07:23 Ur Phencyclidine Scrn Presumptive negative 09/25/16 07:23 Ur Amphetamines Screen Presumptive negative 09/25/16 07:23 U Benzodiazepines Scrn Presumptive negative 09/25/16 07:23 Urine Cocaine Screen Presumptive negative 09/25/16 07:23 U Marijuana (THC) Screen Presumptive negative 09/25/16 07:23 Drugs of Abuse Note Disclamer 09/25/16 07:23 Plasma/Serum Alcohol < 0.01 gm% (0-0.07) 09/25/16 03:56
--- NOTE | 2016-09-27 10:55 | Progress Note ---
Assessment and Plan NSTEMI will hold off on ischemic evaluation given confusion continue ASA, statin Paroxysmal atrial fibrillation currently SR optimize electrolytes continue metoprolol will continue to observe on the monitor Cardiomyopathy Echo 09/2016: moderate LVH, EF 25-30%, impaired relaxation currently compensated Fall Confusion Given altered mental status, will hold off on ischemic evaluation at this time. Continue medical management. The patient has been seen in conjunction with Dr. Heath who agrees with the assessment and plan of care. Subjective Date of service: 09/27/16 Principal diagnosis: elevated troponin Interval history: The patient is resting in bed. No acute distress noted. No verbal response. Sinus rhythm on the monitor currently. Several episodes of what appear to be atrial fibrillation noted on the monitor overnight. Objective Last Vital Signs Temp 98.2 F 09/27/16 12:00 Pulse 73 09/27/16 12:00 Resp 18 09/27/16 12:00 BP 89/52 09/27/16 12:00 Pulse Ox 98 09/27/16 12:00 - Physical Examination General: No Apparent Distress HEENT: Positive: EOMI, Normocephaly, Mucus Membranes Moist Neck: Positive: neck supple, trachea midline Cardiac: Positive: Reg Rate and Rhythm, S1/S2 Lungs: Positive: clear to auscultation Neuro: Positive: Other (No verbal response. Moves all extremities spontaneously. ) Abdomen: Positive: Soft, Active Bowel Sounds. Negative: Tender Skin: Positive: Clear. Negative: Rash Musculoskeletal: Normal Range of Motion Extremities: Present: normal. Absent: edema - Labs and Meds CBC 09/27/16 Range/Units 04:48 Hgb 13.5 (11.8-15.2) gm/dl Hct 39.4 (35.5-45.6) % Plt Count 210 (140-440) K/mm3 - Imaging and Cardiology EKG: image reviewed - Telemetry EKG Rhythm: Sinus Rhythm - EKG Sinus rhythms and dysrhythmias: sinus tachycardia Repolarization changes or abnormalities: ST or T wave suggestive of ischemia Myocardial infarction: septal [place] (old age or ind
[2016-09-27 11:48] LABS: BUN/Creatinine Ratio 26.25; Blood Urea Nitrogen 21 mg/dL (9-20); Calcium 8.1 mg/dL (8.4-10.2); Carbon Dioxide 19 mmol/L (22-30); Glucose 83 mg/dL (75-100); Magnesium 1.9 mg/dL (1.7-2.3)
[2016-09-27 11:49] LABS: Anion Gap 23 mmol/L; Chloride 108.3 mmol/L (98-107); Potassium 3.1 mmol/L (3.6-5.0); Sodium 147 mmol/L (137-145)
--- NOTE | 2016-09-27 15:44 | Admit Criteria Form ---
Admission Criteria Documentation: MENTAL STATUS CHANGE Clinical Indications for Inpatient Care (Place 'X' for any and all applicable criteria): Ongoing inpatient care may be needed for ANY ONE of the following(1)(2)(3)(5)(6) : [X ]I. Suspected serious etiology (eg, medical disorder, [employer] event) of mental status change [ ]II. Danger to self or others not manageable at lower level of care [ ]III. Grave disability (eg, inability to perform self care necessary at lower level of care) [ ]IV. Agitation or inappropriate behavior interfering with care for primary condition (eg, attempting to discontinue lines or drains prematurely, unable to cooperate with respiratory care) [ ]V. Delirium [A] [D][E] as described by ANY ONE of the following(26): [ ]a) Delirium due to alcohol or sedative [F] withdrawal [ ]b) Delirium of uncertain etiology that has not responded to appropriate empiric treatment [ ]c) Delirium that prevents performance of a life-sustaining function (eg, feeding or hydrating oneself) [X ]. General contraindications and/or Inappropriate clinical situations for Observational Care in patients with Mental Status Change, when ANY ONE of the following is required: [X ]a) Prediction of prolongation of LOS based on ANY ONE of the following may be considered as a contraindication for observational care 2, 3, 4, 5, 6, 7, 8, 9, 10, 11 [X ]i) Age > 65 yrs. [ ]ii) Patient arriving by ambulance [ ]iii) Patient with high acuity [ ]iv) Patient requiring vital sign monitoring [ ]v) Patient on IV medication [ ]b) Systolic blood pressures 180mmHg 3,12 [ ]c) Patient with altered mental status including delirium and other alteration of consciousness, (3) [ ]d) Patient whose discharge disposition will be to a nursing home home or rehabilitation home should not be managed in Emergency Department Observation Unit. CMS rule requires 3 days hospital stay before such placement.3,13 [ ]e) Patient with failure to thrive due to broad array of etiologies 3,16,17 [ ]f) Inability to ambulate 3,14 Extended stay beyond goal length of stay for the primary condition may be needed until ALL of the following are present(3)(5): [ ]a) Underlying medical etiology of mental status change is absent, or has been established and adequately treated [ ]b) Danger to self or others is absent or manageable at lower level of care. [ ]c) Behavior crisis management, including physical or chemical restraints, is not required or available at lower level of car [ ]d) Substance or alcohol withdrawal is absent or manageable at lower level of care. [ ]e) Behavioral symptoms (eg, agitation, somnolence, inappropriate behavior) are absent, or are manageable at lower level of care. The original [facility] [employer] content created by [facility] has been revised. The portions of the content which have been revised are identified through the use of italic text or in bold, and [facility] has neither reviewed nor approved the modified material. All other unmodified content is copyright [facility]. Please see references footnoted in the original [facility] edition 2016 Admission Criteria Met: Yes
[2016-09-27] MEDS: KCL 10MEQ/100ML 100 ML IV SCH ×2 (15:48→22:00)
[2016-09-27] MEDS: NACL 0.9% 1000 ML 1,000 ML IV SCH (22:30)
[2016-09-28] MEDS: KCL 10MEQ/100ML 100 ML IV SCH (06:09)
[2016-09-28 07:46] LABS: Anion Gap 25 mmol/L; BUN/Creatinine Ratio 26.66; Blood Urea Nitrogen 24 mg/dL (9-20); Calcium 8.1 mg/dL (8.4-10.2); Carbon Dioxide 16 mmol/L (22-30); Chloride 108.2 mmol/L (98-107); Glucose 71 mg/dL (75-100); Potassium 3.5 mmol/L (3.6-5.0); Sodium 146 mmol/L (137-145)
[2016-09-28] MEDS ORDERED: K-DUR PO ONE (08:48)
--- NOTE | 2016-09-28 09:02 | Progress Note ---
Assessment and Plan Assessment and plan: This is an elderly man who presented status post fall found to be confused of note is that have been set that patient had been taking Xanax and Benadryl multiple doses of night at this occurred. Another concern it was medication related to him falling and being confused 1. NSTEMI Aspirin has been started, Patient that she denies chest pain, cycle troponins, cardiology consult, echocardiogram , cardiology will likely do MPI when his mentation is improved 2. Syncope May be secondary to NSTEMI, other contributing factors could be iatrogenic due to using over the counter sleep meds and Xanax, continue cardiac workup as above , hold Xanax and Benadryl 3. Hypertension Currently normotensive, monitor blood pressure curve , hold all BP meds 4. Prostate cancer Continue Flomax 5. Chronic constipation Continue stool softeners 6. DVT prophylaxis Lovenox subcutaneous 7. Hypokalemia was repleted 8. Delireum continue restraints, and PRN meds for severe agitation only, start low dose trazodone qhs to treat insomnia History Interval history: patient is less confused, and less agitated today Hospitalist Physical - Physical exam Narrative exam: General: Patient appears well in no distress HEENT: MMM, EOMI cardiac: S1-S2 heard lungs: clear to auscultation, abdomen: soft, nontender, nondistended bowel sounds positive extremities: no edema clubbing or cyanosis Skin: no rash or lesion Neuro: Moves all extremities Psych: Patient is confused, oriented x1 and calm - Constitutional Vitals: Temp Pulse Resp BP Pulse Ox 98.9 F 85 24 120/58 96 09/28/16 07:00 09/28/16 07:00 09/28/16 07:00 09/28/16 07:00 09/28/16 04:10 General appearance: Present: no acute distress, well-nourished Results - Labs CBC & Chem 7: 09/27/16 04:48 09/28/16 07:13 Labs: Laboratory Last Values WBC 8.2 K/mm3 (4.5-11.0) 09/26/16 05:08 RBC 4.33 M/mm3 (3.65-5.03) 09/26/16 05:08 Hgb 13.5 gm/dl (11.8-15.2) 09/27/16 04:48 Hct 39.4 % (35.5-45.6) 09/27/16 04:48 MCV 86 fl (84-94) 09/26/16 05:08 MCH 29 pg (28-32) 09/26/16 05:08 MCHC 34 % (32-34) 09/26/16 05:08 RDW 14.3 % (13.2-15.2) 09/26/16 05:08 Plt Count 210 K/mm3 (140-440) 09/27/16 04:48 Lymph % (Auto) 13.2 % (13.4-35.0) L 09/26/16 05:08 [place] % (Auto) 6.4 % (0.0-7.3) 09/26/16 05:08 Eos % (Auto) 0.6 % (0.0-4.3) 09/26/16 05:08 Baso % (Auto) 0.5 % (0.0-1.8) 09/26/16 05:08 Lymph # 1.1 K/mm3 (1.2-5.4) L 09/26/16 05:08 [place] # 0.5 K/mm3 (0.0-0.8) 09/26/16 05:08 Eos # 0.0 K/mm3 (0.0-0.4) 09/26/16 05:08 Baso # 0.0 K/mm3 (0.0-0.1) 09/26/16 05:08 Seg Neutrophils % 79.3 % (40.0-70.0) H 09/26/16 05:08 Seg Neutrophils # 6.5 K/mm3 (1.8-7.7) 09/26/16 05:08 PT 13.1 Sec. (12.2-14.9) 09/25/16 11:00 INR 1.00 (0.87-1.13) 09/25/16 11:00 APTT 23.9 Sec. (24.2-36.6) L 09/25/16 11:00 Heparin Anti-Xa Level 0.25 U.I./ml (0.3-0.7) L 09/26/16 00:50 Sodium 146 mmol/L (137-145) H 09/28/16 07:13 Potassium 3.5 mmol/L (3.6-5.0) L 09/28/16 07:13 Chloride 108.2 mmol/L (98-107) H 09/28/16 07:13 Carbon Dioxide 16 mmol/L (22-30) L 09/28/16 07:13 Anion Gap 25 mmol/L 09/28/16 07:13 BUN 24 mg/dL (9-20) H 09/28/16 07:13 Creatinine 0.9 mg/dL (0.8-1.5) 09/28/16 07:13 Estimated GFR > 60 ml/min 09/28/16 07:13 BUN/Creatinine Ratio 26.66 % 09/28/16 07:13 Glucose 71 mg/dL (75-100) L 09/28/16 07:13 Lactic Acid 1.0 mmol/L (0.7-2.0) 09/25/16 06:52 Calcium 8.1 mg/dL (8.4-10.2) L 09/28/16 07:13 Magnesium 1.9 mg/dL (1.7-2.3) 09/27/16 11:14 Total Bilirubin 0.3 mg/dL (0.1-1.2) 09/25/16 03:56 AST 16 units/L (5-40) 09/25/16 03:56 ALT 7 units/L (7-56) 09/25/16 03:56 Alkaline Phosphatase 94 units/L (35-129) 09/25/16 03:56 Total Creatine Kinase 810 units/L (55-170) H 09/25/16 20:25 CK-MB (CK-2) 117.1 ng/mL (0.0-4.0) H 09/25/16 20:25 CK-MB (CK-2) Rel Index 14.4 (0-4) H 09/25/16 20:25 Troponin T 0.514 ng/mL (0.00-0.029) H* D 09/25/16 20:25 Total Protein 6.7 g/dL (6.3-8.2) 09/25/16 03:56 Albumin 4.1 g/dL (3.9-5) 09/25/16 03:56 Albumin/Globulin Ratio 1.6 % 09/25/16 03:56 Triglycerides 53 mg/dL (2-149) 09/25/16 09:47 Cholesterol 163 mg/dL (50-199) 09/25/16 09:47 LDL Cholesterol Direct 93 mg/dL (50-130) 09/25/16 09:47 HDL Cholesterol 60 mg/dL (40-59) H 09/25/16 09:47 Cholesterol/HDL Ratio 2.71 % 09/25/16 09:47 TSH 1.420 mlU/mL (0.270-4.200) 09/25/16 06:52 Urine Color Yellow (Yellow) 09/25/16 07:23 Urine Turbidity Cloudy (Clear) 09/25/16 07:23 Urine pH 7.0 (5.0-7.0) 09/25/16 07:23 Ur Specific [place] 1.017 (1.003-1.030) 09/25/16 07:23 Urine Protein <15 mg/dl mg/dL (Negative) 09/25/16 07:23 Urine Glucose (UA) 50 mg/dL (Negative) 09/25/16 07:23 Urine Ketones Neg mg/dL (Negative) 09/25/16 07:23 Urine Blood Neg (Negative) 09/25/16 07:23 Urine Nitrite Neg (Negative) 09/25/16 07:23 Urine Bilirubin Neg (Negative) 09/25/16 07:23 Urine Urobilinogen < 2.0 mg/dL (<2.0) 09/25/16 07:23 Ur Leukocyte Esterase Neg (Negative) 09/25/16 07:23 Urine WBC (Auto) < 1.0 /HPF (0.0-6.0) 09/25/16 07:23 Urine RBC (Auto) 4.0 /HPF (0.0-6.0) 09/25/16 07:23 U Epithel Cells (Auto) 2.0 /HPF (0-13.0) 09/25/16 07:23 Urine Bacteria (Auto) 2+ /HPF (Negative) 09/25/16 07:23 Amorphous Crystals 1+ 09/25/16 07:23 Urine Mucus Few /HPF 09/25/16 07:23 Salicylates < 0.3 mg/dL (2.8-20.0) L 09/25/16 03:56 Urine Opiates Screen Presumptive negative 09/25/16 07:23 Urine Methadone Screen Presumptive negative 09/25/16 07:23 Acetaminophen < 15.0 ug/mL (10.0-30.0) 09/25/16 03:56 Ur Barbiturates Screen Presumptive negative 09/25/16 07:23 Ur Phencyclidine Scrn Presumptive negative 09/25/16 07:23 Ur Amphetamines Screen Presumptive negative 09/25/16 07:23 U Benzodiazepines Scrn Presumptive negative 09/25/16 07:23 Urine Cocaine Screen Presumptive negative 09/25/16 07:23 U Marijuana (THC) Screen Presumptive negative 09/25/16 07:23 Drugs of Abuse Note Disclamer 09/25/16 07:23 Plasma/Serum Alcohol < 0.01 gm% (0-0.07) 09/25/16 03:56
[2016-09-28] MEDS: FLOMAX PO SCH ×2 (10:06→11:38)
[2016-09-28] MEDS: ASPIRIN PO SCH ×2 (10:06→11:37)
[2016-09-28] MEDS: LOPRESSOR PO SCH ×3 (10:06→21:15)
[2016-09-28] MEDS: LOVENOX SUB-Q SCH (10:07)
--- NOTE | 2016-09-28 11:38 | Progress Note ---
Assessment and Plan NSTEMI will hold off on ischemic evaluation given confusion continue ASA, statin Paroxysmal atrial fibrillation currently SR-->will continue to observe on the monitor optimize electrolytes continue metoprolol Cardiomyopathy Echo 09/2016: moderate LVH, EF 25-30%, impaired relaxation currently compensated Fall Confusion Continue current management. The patient is not a candidate for invasive cardiac management at this time given mental status. The patient has been seen in conjunction with Dr. Heath who agrees with the assessment and plan of care. Subjective Date of service: 09/28/16 Principal diagnosis: elevated troponin Interval history: The patient is resting in bed. He is confused. No acute distress noted. Sinus rhythm on the monitor. Objective Last Vital Signs Temp 98.9 F 09/28/16 07:00 Pulse 92 H 09/28/16 11:34 Resp 24 09/28/16 07:00 BP 120/58 09/28/16 07:00 Pulse Ox 96 09/28/16 11:09 - Physical Examination General: No Apparent Distress HEENT: Positive: EOMI, Normocephaly, Mucus Membranes Moist Neck: Positive: neck supple, trachea midline Cardiac: Positive: Reg Rate and Rhythm, S1/S2 Lungs: Positive: clear to auscultation Neuro: Positive: Other (Pt. confused. Moves all extremities spontaneously.) Abdomen: Positive: Soft, Active Bowel Sounds. Negative: Tender Skin: Positive: Clear. Negative: Rash Musculoskeletal: Normal Range of Motion Extremities: Present: normal. Absent: edema - Labs and Meds Comprehensive Metabolic Panel 09/27/16 09/28/16 Range/Units 11:14 07:13 Sodium 147 H 146 H (137-145) mmol/L Potassium 3.1 L 3.5 L (3.6-5.0) mmol/L Chloride 108.3 H 108.2 H (98-107) mmol/L Carbon Dioxide 19 L 16 L (22-30) mmol/L BUN 21 H 24 H (9-20) mg/dL Creatinine 0.8 0.9 (0.8-1.5) mg/dL Glucose 83 71 L (75-100) mg/dL Calcium 8.1 L 8.1 L (8.4-10.2) mg/dL - Imaging and Cardiology EKG: image reviewed Echo: report reviewed (09/2016: moderate LVH, EF 25-30%, impaired relaxation ) - Telemetry EKG Rhythm: Sinus Rhythm - EKG Sinus rhythms and dysrhythmias: sinus tachycardia Repolarization changes or abnormalities: ST or T wave suggestive of ischemia Myocardial infarction: septal [place] (old age or ind
[2016-09-28] MEDS: ATIVAN IV PRN ×2 (14:40→21:17)
[2016-09-28] MEDS: DESYREL PO SCH (21:17)
[2016-09-29 06:39] LABS: Hematocrit 33.1 % (35.5-45.6); Hemoglobin 11.5 gm/dl (11.8-15.2)
--- NOTE | 2016-09-29 10:00 | Progress Note ---
Assessment and Plan Altered mental status acute change per family members await psych and neuro evaluations NSTEMI pt. not a candidate for invasive mgt. given AMS continue ASA, statin Paroxysmal atrial fibrillation currently SR-->will continue to observe on the monitor optimize electrolytes continue metoprolol Cardiomyopathy Echo 09/2016: moderate LVH, EF 25-30%, impaired relaxation currently compensated Fall Confusion The patient is not a candidate for invasive cardiac management at this time given altered mental status. Await psych and neuro evaluations. The patient has been seen in conjunction with Dr. Charlton who agrees with the assessment and plan of care. Subjective Date of service: 09/29/16 Principal diagnosis: elevated troponin Interval history: The patient remains confused, in restraints currently. Sinus rhythm on the monitor. Objective Last Vital Signs Temp 97.6 F 09/29/16 08:09 Pulse 74 09/29/16 08:09 Resp 20 09/29/16 08:09 BP 108/54 09/29/16 08:09 Pulse Ox 98 09/29/16 08:09 - Physical Examination General: No Apparent Distress HEENT: Positive: EOMI, Normocephaly, Mucus Membranes Moist Neck: Positive: neck supple, trachea midline Cardiac: Positive: Reg Rate and Rhythm, S1/S2 Lungs: Positive: clear to auscultation Neuro: Positive: Other (Pt. confused. Moves all extremities spontaneously.) Abdomen: Positive: Soft, Active Bowel Sounds. Negative: Tender Skin: Positive: Clear. Negative: Rash Musculoskeletal: Normal Range of Motion Extremities: Present: normal. Absent: edema - Labs and Meds CBC 09/29/16 Range/Units 05:10 Hgb 11.5 L (11.8-15.2) gm/dl Hct 33.1 L D (35.5-45.6) % Plt Count 209 (140-440) K/mm3 - Imaging and Cardiology EKG: image reviewed Echo: report reviewed (09/2016: moderate LVH, EF 25-30%, impaired relaxation ) - Telemetry EKG Rhythm: Sinus Rhythm - EKG Sinus rhythms and dysrhythmias: sinus tachycardia Repolarization changes or abnormalities: ST or T wave suggestive of ischemia Myocardial infarction: septal [place] (old age or ind
[2016-09-29] MEDS: LOVENOX SUB-Q SCH (11:20)
[2016-09-29] MEDS: LOPRESSOR PO SCH ×2 (11:21→22:20)
[2016-09-29] MEDS: ASPIRIN PO SCH (11:21)
[2016-09-29] MEDS: FLOMAX PO SCH (11:21)
--- NOTE | 2016-09-29 14:03 | Consultation ---
History of Present Illness - Reason for Consult Consult date: 09/29/16 syncope - History of Present Illness spoke to the son and went over the hx severe problem with medications ie xanax benadryl and elavil suspect acute delirium thanks for the consult plan to Past History Past Medical History: arthritis, hypertension, other (prostate cancer) Past Surgical History: hernia repair, tonsillectomy, Other (prostate surgery) Social history: no significant social history Family history: no significant family history Medications and Allergies Allergies Allergy/AdvReac Type Severity Reaction Status Date / Time codeine Allergy Unknown Verified 06/27/15 14:25 Home Medications Medication Instructions Recorded Confirmed Last Taken Type ALPRAZolam [Xanax TAB] 0.25 mg PO BID PRN 06/27/15 09/25/16 Unknown History Docusate Sodium [Colace CAP] 100 mg PO BID PRN #30 capsule 06/27/15 09/25/16 Unknown Rx Lactulose [Cephulac] 20 gm PO QDAY PRN #90 ml 06/27/15 09/25/16 Unknown Rx Tamsulosin [Flomax] 0.4 mg PO QDAY 06/27/15 09/25/16 Unknown History traMADol [Ultram] 50 mg PO Q6HR PRN 06/27/15 09/25/16 Unknown History Active Meds: Active Medications Acetaminophen (Tylenol) 650 mg PO Q4H PRN PRN Reason: Pain MILD(1-3)/Fever >100.5/[facility]AMS Aspirin (Aspirin) 325 mg PO QDAY [facility] Last Admin: 09/29/16 11:21 Dose: 325 mg Atorvastatin Calcium (Lipitor) 40 mg PO QHS [facility] Last Admin: 09/28/16 21:14 Dose: 40 mg Bisacodyl (Dulcolax) 10 mg [place] QDAY PRN PRN Reason: Constipation unrelieved by MOM Docusate Sodium (Colace) 100 mg PO BID PRN PRN Reason: Constipation Last Admin: 09/28/16 21:15 Dose: 100 mg Enoxaparin Sodium (Lovenox) 40 mg SUB-Q QDAY [facility] Last Admin: 09/29/16 11:20 Dose: 40 mg Sodium Chloride (Nacl 0.9% 1000 Ml) 1,000 mls @ 75 mls/hr IV DIRECT [facility] Last Admin: 09/27/16 22:30 Dose: 75 mls/hr Lactulose (Cephulac) 20 gm PO QDAY PRN PRN Reason: Constipation Lorazepam (Ativan) 0.5 mg IV Q4H PRN PRN Reason: Agitation Last Admin: 09/28/16 21:17 Dose: 0.5 mg Magnesium Hydroxide (Milk Of Magnesia) 30 ml PO Q4H PRN PRN Reason: Constipation Metoprolol Tartrate (Lopressor) 12.5 mg PO BID [facility] Last Admin: 09/29/16 11:21 Dose: 12.5 mg Morphine Sulfate (Morphine) 2 mg IV Q4H PRN PRN Reason: Pain, Moderate (4-6) Ondansetron HCl (Zofran) 4 mg IV Q8H PRN PRN Reason: N/V unrelieved by Reglan Tamsulosin HCl (Flomax) 0.4 mg PO QDAY [facility] Last Admin: 09/29/16 11:21 Dose: 0.4 mg Trazodone HCl (Desyrel) 25 mg PO QHS [facility] Last Admin: 09/28/16 21:17 Dose: 25 mg Exam - Constitutional Vitals: Temp Pulse Resp BP Pulse Ox 97.6 F 74 20 108/54 98 09/29/16 08:09 09/29/16 08:09 09/29/16 08:09 09/29/16 08:09 09/29/16 08:09 Results - Labs CBC & Chem 7: 09/29/16 05:10 09/28/16 07:13 Labs: Abnormal lab results 09/29/16 Range/Units 05:10 Hgb 11.5 L (11.8-15.2) gm/dl Hct 33.1 L D (35.5-45.6) %
[2016-09-29] MEDS: ATIVAN IV PRN (21:59)
[2016-09-29] MEDS: DESYREL PO SCH (22:22)
[2016-09-30] MEDS: ATIVAN IV PRN (04:58)
--- NOTE | 2016-09-30 09:55 | Progress Note ---
Assessment and Plan Altered mental status acute change per family members neuro following await psych evaluation NSTEMI pt. not a candidate for invasive mgt. given AMS continue ASA, statin Paroxysmal atrial fibrillation currently SR-->will continue to observe on the monitor optimize electrolytes continue metoprolol Cardiomyopathy Echo 09/2016: moderate LVH, EF 25-30%, impaired relaxation currently compensated Fall Confusion The patient is not a candidate for invasive cardiac management at this time given altered mental status. Continue medical management. The patient has been seen in conjunction with Dr. Heath who agrees with the assessment and plan of care. Subjective Date of service: 09/30/16 Principal diagnosis: elevated troponin Interval history: The patient remains agitated and in restraints at this time. Sinus rhythm on the monitor. Objective Last Vital Signs Temp 97.6 F 09/30/16 08:11 Pulse 89 09/30/16 08:11 Resp 20 09/30/16 08:11 BP 148/63 09/30/16 08:11 Pulse Ox 98 09/30/16 08:11 - Physical Examination General: No Apparent Distress (pt. confused) HEENT: Positive: EOMI, Normocephaly, Mucus Membranes Moist Neck: Positive: neck supple, trachea midline Cardiac: Positive: Reg Rate and Rhythm, S1/S2 Lungs: Positive: clear to auscultation Neuro: Positive: Other (Pt. confused. Moves all extremities spontaneously.) Abdomen: Positive: Soft, Active Bowel Sounds. Negative: Tender Skin: Positive: Clear. Negative: Rash Musculoskeletal: Normal Range of Motion Extremities: Present: normal. Absent: edema - Imaging and Cardiology EKG: image reviewed Echo: report reviewed (09/2016: moderate LVH, EF 25-30%, impaired relaxation ) - Telemetry EKG Rhythm: Sinus Rhythm - EKG Sinus rhythms and dysrhythmias: sinus tachycardia Repolarization changes or abnormalities: ST or T wave suggestive of ischemia Myocardial infarction: septal [place] (old age or ind
[2016-09-30] MEDS: ASPIRIN PO SCH (10:17)
[2016-09-30] MEDS: FLOMAX PO SCH (10:17)
[2016-09-30] MEDS: LOPRESSOR PO SCH ×2 (10:18→22:15)
[2016-09-30] MEDS: LOVENOX SUB-Q SCH (10:18)
--- NOTE | 2016-09-30 10:32 | Progress Note ---
Assessment and Plan Assessment and plan: This is an elderly man who presented status post fall found to be confused of note is that have been set that patient had been taking Xanax and Benadryl multiple doses of night at this occurred. Another concern it was medication related to him falling and being confused 1. NSTEMI Aspirin has been started, Patient that she denies chest pain, cycle troponins, cardiology consult, echocardiogram , cardiology will likely do MPI when his mentation is improved 2. Syncope May be secondary to NSTEMI, other contributing factors could be iatrogenic due to using over the counter sleep meds and Xanax, continue cardiac workup as above , hold Xanax and Benadryl 3. Hypertension Currently normotensive, monitor blood pressure curve , hold all BP meds 4. Prostate cancer Continue Flomax 5. Chronic constipation Continue stool softeners 6. DVT prophylaxis Lovenox subcutaneous 7. Hypokalemia was repleted 8. Delireum continue restraints, and PRN meds for severe agitation only, no improvement with trazodone so will switch to risperidone, awaiting mental health consult History Interval history: was very agitated yesterday and was using foul language against staff Hospitalist Physical - Physical exam Narrative exam: General: Patient appears well in no distress HEENT: MMM, EOMI cardiac: S1-S2 heard lungs: clear to auscultation, abdomen: soft, nontender, nondistended bowel sounds positive extremities: no edema clubbing or cyanosis Skin: no rash or lesion Neuro: Moves all extremities Psych: Patient is confused, oriented x1 and tearful - Constitutional Vitals: Temp Pulse Resp BP Pulse Ox 97.6 F 89 20 148/63 98 09/30/16 08:11 09/30/16 08:11 09/30/16 08:11 09/30/16 08:11 09/30/16 08:11 General appearance: Present: no acute distress, well-nourished Results - Labs CBC & Chem 7: 09/29/16 05:10 09/28/16 07:13 Labs: Laboratory Last Values WBC 8.2 K/mm3 (4.5-11.0) 09/26/16 05:08 RBC 4.33 M/mm3 (3.65-5.03) 09/26/16 05:08 Hgb 11.5 gm/dl (11.8-15.2) L 09/29/16 05:10 Hct 33.1 % (35.5-45.6) L D 09/29/16 05:10 MCV 86 fl (84-94) 09/26/16 05:08 MCH 29 pg (28-32) 09/26/16 05:08 MCHC 34 % (32-34) 09/26/16 05:08 RDW 14.3 % (13.2-15.2) 09/26/16 05:08 Plt Count 209 K/mm3 (140-440) 09/29/16 05:10 Lymph % (Auto) 13.2 % (13.4-35.0) L 09/26/16 05:08 [place] % (Auto) 6.4 % (0.0-7.3) 09/26/16 05:08 Eos % (Auto) 0.6 % (0.0-4.3) 09/26/16 05:08 Baso % (Auto) 0.5 % (0.0-1.8) 09/26/16 05:08 Lymph # 1.1 K/mm3 (1.2-5.4) L 09/26/16 05:08 [place] # 0.5 K/mm3 (0.0-0.8) 09/26/16 05:08 Eos # 0.0 K/mm3 (0.0-0.4) 09/26/16 05:08 Baso # 0.0 K/mm3 (0.0-0.1) 09/26/16 05:08 Seg Neutrophils % 79.3 % (40.0-70.0) H 09/26/16 05:08 Seg Neutrophils # 6.5 K/mm3 (1.8-7.7) 09/26/16 05:08 PT 13.1 Sec. (12.2-14.9) 09/25/16 11:00 INR 1.00 (0.87-1.13) 09/25/16 11:00 APTT 23.9 Sec. (24.2-36.6) L 09/25/16 11:00 Heparin Anti-Xa Level 0.25 U.I./ml (0.3-0.7) L 09/26/16 00:50 Sodium 146 mmol/L (137-145) H 09/28/16 07:13 Potassium 3.5 mmol/L (3.6-5.0) L 09/28/16 07:13 Chloride 108.2 mmol/L (98-107) H 09/28/16 07:13 Carbon Dioxide 16 mmol/L (22-30) L 09/28/16 07:13 Anion Gap 25 mmol/L 09/28/16 07:13 BUN 24 mg/dL (9-20) H 09/28/16 07:13 Creatinine 0.9 mg/dL (0.8-1.5) 09/28/16 07:13 Estimated GFR > 60 ml/min 09/28/16 07:13 BUN/Creatinine Ratio 26.66 % 09/28/16 07:13 Glucose 71 mg/dL (75-100) L 09/28/16 07:13 Lactic Acid 1.0 mmol/L (0.7-2.0) 09/25/16 06:52 Calcium 8.1 mg/dL (8.4-10.2) L 09/28/16 07:13 Magnesium 1.9 mg/dL (1.7-2.3) 09/27/16 11:14 Total Bilirubin 0.3 mg/dL (0.1-1.2) 09/25/16 03:56 AST 16 units/L (5-40) 09/25/16 03:56 ALT 7 units/L (7-56) 09/25/16 03:56 Alkaline Phosphatase 94 units/L (35-129) 09/25/16 03:56 Total Creatine Kinase 810 units/L (55-170) H 09/25/16 20:25 CK-MB (CK-2) 117.1 ng/mL (0.0-4.0) H 09/25/16 20:25 CK-MB (CK-2) Rel Index 14.4 (0-4) H 09/25/16 20:25 Troponin T 0.514 ng/mL (0.00-0.029) H* D 09/25/16 20:25 Total Protein 6.7 g/dL (6.3-8.2) 09/25/16 03:56 Albumin 4.1 g/dL (3.9-5) 09/25/16 03:56 Albumin/Globulin Ratio 1.6 % 09/25/16 03:56 Triglycerides 53 mg/dL (2-149) 09/25/16 09:47 Cholesterol 163 mg/dL (50-199) 09/25/16 09:47 LDL Cholesterol Direct 93 mg/dL (50-130) 09/25/16 09:47 HDL Cholesterol 60 mg/dL (40-59) H 09/25/16 09:47 Cholesterol/HDL Ratio 2.71 % 09/25/16 09:47 TSH 1.420 mlU/mL (0.270-4.200) 09/25/16 06:52 Urine Color Yellow (Yellow) 09/25/16 07:23 Urine Turbidity Cloudy (Clear) 09/25/16 07:23 Urine pH 7.0 (5.0-7.0) 09/25/16 07:23 Ur Specific [place] 1.017 (1.003-1.030) 09/25/16 07:23 Urine Protein <15 mg/dl mg/dL (Negative) 09/25/16 07:23 Urine Glucose (UA) 50 mg/dL (Negative) 09/25/16 07:23 Urine Ketones Neg mg/dL (Negative) 09/25/16 07:23 Urine Blood Neg (Negative) 09/25/16 07:23 Urine Nitrite Neg (Negative) 09/25/16 07:23 Urine Bilirubin Neg (Negative) 09/25/16 07:23 Urine Urobilinogen < 2.0 mg/dL (<2.0) 09/25/16 07:23 Ur Leukocyte Esterase Neg (Negative) 09/25/16 07:23 Urine WBC (Auto) < 1.0 /HPF (0.0-6.0) 09/25/16 07:23 Urine RBC (Auto) 4.0 /HPF (0.0-6.0) 09/25/16 07:23 U Epithel Cells (Auto) 2.0 /HPF (0-13.0) 09/25/16 07:23 Urine Bacteria (Auto) 2+ /HPF (Negative) 09/25/16 07:23 Amorphous Crystals 1+ 09/25/16 07:23 Urine Mucus Few /HPF 09/25/16 07:23 Salicylates < 0.3 mg/dL (2.8-20.0) L 09/25/16 03:56 Urine Opiates Screen Presumptive negative 09/25/16 07:23 Urine Methadone Screen Presumptive negative 09/25/16 07:23 Acetaminophen < 15.0 ug/mL (10.0-30.0) 09/25/16 03:56 Ur Barbiturates Screen Presumptive negative 09/25/16 07:23 Ur Phencyclidine Scrn Presumptive negative 09/25/16 07:23 Ur Amphetamines Screen Presumptive negative 09/25/16 07:23 U Benzodiazepines Scrn Presumptive negative 09/25/16 07:23 Urine Cocaine Screen Presumptive negative 09/25/16 07:23 U Marijuana (THC) Screen Presumptive negative 09/25/16 07:23 Drugs of Abuse Note Disclamer 09/25/16 07:23 Plasma/Serum Alcohol < 0.01 gm% (0-0.07) 09/25/16 03:56
[2016-09-30] MEDS: RisperDAL PO SCH ×2 (12:14→22:14)
[2016-09-30] MEDS: HALDOL IM PRN (22:14)
[2016-10-01 05:36] LABS: Hematocrit 35.8 % (35.5-45.6); Hemoglobin 12.4 gm/dl (11.8-15.2)
[2016-10-01] MEDS: LOVENOX SUB-Q SCH (11:30)
[2016-10-01] MEDS: ASPIRIN PO SCH (11:30)
[2016-10-01] MEDS: FLOMAX PO SCH (11:31)
[2016-10-01] MEDS: RisperDAL PO SCH ×3 (11:31→21:36)
[2016-10-01] MEDS: LOPRESSOR PO SCH ×2 (11:31→21:37)
--- NOTE | 2016-10-01 11:51 | Progress Note ---
Assessment and Plan Assessment and plan: This is an elderly man who presented status post fall found to be confused of note is that have been set that patient had been taking Xanax and Benadryl multiple doses of night at this occurred. Another concern it was medication related to him falling and being confused 1. NSTEMI Aspirin has been started, Patient that she denies chest pain, cycle troponins, cardiology consult, echo, cardiology will likely do MPI when his mentation is improved 2. Syncope May be secondary to NSTEMI, other contributing factors could be iatrogenic due to using over the counter sleep meds and Xanax, continue cardiac workup as above , hold Xanax and Benadryl 3. Hypertension Currently normotensive, monitor blood pressure curve , hold all BP meds 4. Prostate cancer Continue Flomax 5. Chronic constipation Continue stool softeners 6. DVT prophylaxis Lovenox subcutaneous 7. Hypokalemia was repleted, we'll recheck 8. Delireum continue restraints, and PRN meds for severe agitation only, no improvement with trazodone so will switch to risperidone, awaiting mental health consult History Interval history: Mentation is somewhat improved, patient is less agitated. Has been somewhat somnolent. Hospitalist Physical - Physical exam Narrative exam: General: Patient appears well in no distress HEENT: MMM, EOMI cardiac: S1-S2 heard lungs: clear to auscultation, abdomen: soft, nontender, nondistended bowel sounds positive extremities: no edema clubbing or cyanosis Skin: no rash or lesion Neuro: Moves all extremities, obeys commands Psych: Patient is confused, oriented x1, calm, not agitated - Constitutional Vitals: Temp Pulse Resp BP Pulse Ox 96.4 F L 84 22 136/62 96 10/01/16 07:24 10/01/16 07:24 10/01/16 07:24 10/01/16 07:24 10/01/16 07:24 General appearance: Present: no acute distress, well-nourished Results - Labs CBC & Chem 7: 10/01/16 05:02 09/28/16 07:13 Labs: Laboratory Last Values WBC 8.2 K/mm3 (4.5-11.0) 09/26/16 05:08 RBC 4.33 M/mm3 (3.65-5.03) 09/26/16 05:08 Hgb 12.4 gm/dl (11.8-15.2) 10/01/16 05:02 Hct 35.8 % (35.5-45.6) 10/01/16 05:02 MCV 86 fl (84-94) 09/26/16 05:08 MCH 29 pg (28-32) 09/26/16 05:08 MCHC 34 % (32-34) 09/26/16 05:08 RDW 14.3 % (13.2-15.2) 09/26/16 05:08 Plt Count 234 K/mm3 (140-440) 10/01/16 05:02 Lymph % (Auto) 13.2 % (13.4-35.0) L 09/26/16 05:08 [place] % (Auto) 6.4 % (0.0-7.3) 09/26/16 05:08 Eos % (Auto) 0.6 % (0.0-4.3) 09/26/16 05:08 Baso % (Auto) 0.5 % (0.0-1.8) 09/26/16 05:08 Lymph # 1.1 K/mm3 (1.2-5.4) L 09/26/16 05:08 [place] # 0.5 K/mm3 (0.0-0.8) 09/26/16 05:08 Eos # 0.0 K/mm3 (0.0-0.4) 09/26/16 05:08 Baso # 0.0 K/mm3 (0.0-0.1) 09/26/16 05:08 Seg Neutrophils % 79.3 % (40.0-70.0) H 09/26/16 05:08 Seg Neutrophils # 6.5 K/mm3 (1.8-7.7) 09/26/16 05:08 PT 13.1 Sec. (12.2-14.9) 09/25/16 11:00 INR 1.00 (0.87-1.13) 09/25/16 11:00 APTT 23.9 Sec. (24.2-36.6) L 09/25/16 11:00 Heparin Anti-Xa Level 0.25 U.I./ml (0.3-0.7) L 09/26/16 00:50 Sodium 146 mmol/L (137-145) H 09/28/16 07:13 Potassium 3.5 mmol/L (3.6-5.0) L 09/28/16 07:13 Chloride 108.2 mmol/L (98-107) H 09/28/16 07:13 Carbon Dioxide 16 mmol/L (22-30) L 09/28/16 07:13 Anion Gap 25 mmol/L 09/28/16 07:13 BUN 24 mg/dL (9-20) H 09/28/16 07:13 Creatinine 0.9 mg/dL (0.8-1.5) 09/28/16 07:13 Estimated GFR > 60 ml/min 09/28/16 07:13 BUN/Creatinine Ratio 26.66 % 09/28/16 07:13 Glucose 71 mg/dL (75-100) L 09/28/16 07:13 Lactic Acid 1.0 mmol/L (0.7-2.0) 09/25/16 06:52 Calcium 8.1 mg/dL (8.4-10.2) L 09/28/16 07:13 Magnesium 1.9 mg/dL (1.7-2.3) 09/27/16 11:14 Total Bilirubin 0.3 mg/dL (0.1-1.2) 09/25/16 03:56 AST 16 units/L (5-40) 09/25/16 03:56 ALT 7 units/L (7-56) 09/25/16 03:56 Alkaline Phosphatase 94 units/L (35-129) 09/25/16 03:56 Total Creatine Kinase 810 units/L (55-170) H 09/25/16 20:25 CK-MB (CK-2) 117.1 ng/mL (0.0-4.0) H 09/25/16 20:25 CK-MB (CK-2) Rel Index 14.4 (0-4) H 09/25/16 20:25 Troponin T 0.514 ng/mL (0.00-0.029) H* D 09/25/16 20:25 Total Protein 6.7 g/dL (6.3-8.2) 09/25/16 03:56 Albumin 4.1 g/dL (3.9-5) 09/25/16 03:56 Albumin/Globulin Ratio 1.6 % 09/25/16 03:56 Triglycerides 53 mg/dL (2-149) 09/25/16 09:47 Cholesterol 163 mg/dL (50-199) 09/25/16 09:47 LDL Cholesterol Direct 93 mg/dL (50-130) 09/25/16 09:47 HDL Cholesterol 60 mg/dL (40-59) H 09/25/16 09:47 Cholesterol/HDL Ratio 2.71 % 09/25/16 09:47 TSH 1.420 mlU/mL (0.270-4.200) 09/25/16 06:52 Urine Color Yellow (Yellow) 09/25/16 07:23 Urine Turbidity Cloudy (Clear) 09/25/16 07:23 Urine pH 7.0 (5.0-7.0) 09/25/16 07:23 Ur Specific [place] 1.017 (1.003-1.030) 09/25/16 07:23 Urine Protein <15 mg/dl mg/dL (Negative) 09/25/16 07:23 Urine Glucose (UA) 50 mg/dL (Negative) 09/25/16 07:23 Urine Ketones Neg mg/dL (Negative) 09/25/16 07:23 Urine Blood Neg (Negative) 09/25/16 07:23 Urine Nitrite Neg (Negative) 09/25/16 07:23 Urine Bilirubin Neg (Negative) 09/25/16 07:23 Urine Urobilinogen < 2.0 mg/dL (<2.0) 09/25/16 07:23 Ur Leukocyte Esterase Neg (Negative) 09/25/16 07:23 Urine WBC (Auto) < 1.0 /HPF (0.0-6.0) 09/25/16 07:23 Urine RBC (Auto) 4.0 /HPF (0.0-6.0) 09/25/16 07:23 U Epithel Cells (Auto) 2.0 /HPF (0-13.0) 09/25/16 07:23 Urine Bacteria (Auto) 2+ /HPF (Negative) 09/25/16 07:23 Amorphous Crystals 1+ 09/25/16 07:23 Urine Mucus Few /HPF 09/25/16 07:23 Salicylates < 0.3 mg/dL (2.8-20.0) L 09/25/16 03:56 Urine Opiates Screen Presumptive negative 09/25/16 07:23 Urine Methadone Screen Presumptive negative 09/25/16 07:23 Acetaminophen < 15.0 ug/mL (10.0-30.0) 09/25/16 03:56 Ur Barbiturates Screen Presumptive negative 09/25/16 07:23 Ur Phencyclidine Scrn Presumptive negative 09/25/16 07:23 Ur Amphetamines Screen Presumptive negative 09/25/16 07:23 U Benzodiazepines Scrn Presumptive negative 09/25/16 07:23 Urine Cocaine Screen Presumptive negative 09/25/16 07:23 U Marijuana (THC) Screen Presumptive negative 09/25/16 07:23 Drugs of Abuse Note Disclamer 09/25/16 07:23 Plasma/Serum Alcohol < 0.01 gm% (0-0.07) 09/25/16 03:56 - Imaging and Cardiology Venous US: image reviewed (carotid ultrasound does not show any significant stenosis)
--- NOTE | 2016-10-01 11:54 | Progress Note ---
Assessment and Plan Altered mental status acute change per family members neuro following await psych evaluation NSTEMI type 2 pt. not a candidate for invasive mgt. given AMS continue ASA, statin Paroxysmal atrial fibrillation currently SR-->will continue to observe on the monitor optimize electrolytes continue metoprolol Cardiomyopathy Echo 09/2016: moderate LVH, EF 25-30%, impaired relaxation currently compensated add lisinopril for lv dsyfunction Fall Confusion Subjective Date of service: 10/01/16 Principal diagnosis: elevated troponin Interval history: pt in the bed more oriented today Objective Vital Signs Temp Pulse Pulse Resp BP Pulse Ox 10/01/16 07:24 96.4 F L 84 22 136/62 96 10/01/16 06:16 82 10/01/16 05:38 97.5 F L 20 L 20 132/61 97 10/01/16 05:00 80 10/01/16 01:03 98.2 F 100 H 24 164/73 09/30/16 20:44 98.0 F 97 H 20 142/67 97 09/30/16 17:10 80 09/30/16 15:11 97.3 F L 92 H 20 137/63 98 - Physical Examination General: No Apparent Distress (pt. confused) HEENT: Positive: EOMI, Normocephaly, Mucus Membranes Moist Neck: Positive: neck supple, trachea midline Cardiac: Positive: Reg Rate and Rhythm Lungs: Positive: clear to auscultation Neuro: Positive: Other (more alert today) Abdomen: Positive: Soft, Active Bowel Sounds. Negative: Tender Skin: Positive: Clear. Negative: Rash Musculoskeletal: Normal Range of Motion Extremities: Present: normal. Absent: edema - Labs and Meds CBC 10/01/16 Range/Units 05:02 Hgb 12.4 (11.8-15.2) gm/dl Hct 35.8 (35.5-45.6) % Plt Count 234 (140-440) K/mm3 - Imaging and Cardiology EKG: image reviewed Echo: report reviewed (09/2016: moderate LVH, EF 25-30%, impaired relaxation ) - Telemetry EKG Rhythm: Sinus Rhythm (no afib nsr no vtach noted) - EKG Sinus rhythms and dysrhythmias: sinus tachycardia Repolarization changes or abnormalities: ST or T wave suggestive of ischemia Myocardial infarction: septal [place] (old age or ind
[2016-10-01] MEDS: ZESTRIL PO SCH (15:52)
[2016-10-02 08:17] LABS: Alanine Aminotransferase 22 units/L (7-56); Albumin 2.9 g/dL (3.9-5); Albumin/Globulin Ratio 1.1 %; Alkaline Phosphatase 84 units/L (35-129); Anion Gap 18 mmol/L; BUN/Creatinine Ratio 18.57; Bilirubin,Total 0.5 mg/dL (0.1-1.2); Blood Urea Nitrogen 13 mg/dL (9-20); Calcium 7.9 mg/dL (8.4-10.2); Carbon Dioxide 22 mmol/L (22-30); Chloride 106.8 mmol/L (98-107); Glucose 92 mg/dL (75-100); Sodium 144 mmol/L (137-145); Total Protein 5.6 g/dL (6.3-8.2)
[2016-10-02 08:30] LABS: Potassium 2.6 mmol/L (3.6-5.0)
[2016-10-02] MEDS ORDERED: K-DUR PO ONE ×2 (09:58→16:00)
--- NOTE | 2016-10-02 10:07 | Progress Note ---
Assessment and Plan Assessment and plan: 1. NSTEMI - Continue aspirin and statin - Cardiology consult appreciated - No invasive procedures for now now 2. Syncope May be secondary to NSTEMI, other contributing factors could be iatrogenic due to using over the counter sleep meds and Xanax, continue cardiac workup as above , hold Xanax and Benadryl 3. Hypertension Currently normotensive, monitor blood pressure curve , hold all BP meds 4. Prostate cancer Continue Flomax 5. Chronic constipation Continue stool softeners 6. DVT prophylaxis Lovenox subcutaneous 7. Hypokalemia - Repleted - We'll check BMP - Repeat potassium is still low he was given another 60meq - Check MG level 8. Delireum - resolved Disposition Plan: continue inpatient care History Interval history: No nursing issues overnight. patient is alert and oriented. Hospitalist Physical - Physical exam Narrative exam: Not in cardiopulmonary distress. Vital signs as documented. Head exam is unremarkable. No scleral icterus . Neck is without jugular venous distension, thyromegaly, or carotid bruits. Lungs are clear to auscultation. Cardiac exam reveals regular rate and Rhythm. First and second heart sounds normal. No murmurs, rubs or gallops. Abdominal exam reveals normal bowel sounds, no masses, no organomegaly and no aortic enlargement. Extremities are nonedematous and both femoral and pedal pulses are normal. ASSISTANT IMPORT MANAGER: Alert and oriented 3. No focal weakness. - Constitutional Vitals: Temp Pulse Resp BP Pulse Ox 98.6 F 80 20 129/60 98 10/02/16 07:45 10/02/16 07:45 10/02/16 07:45 10/02/16 07:45 10/02/16 07:45 General appearance: Present: no acute distress, well-nourished Results - Labs CBC & Chem 7: 10/01/16 05:02 10/02/16 13:41 Labs: Laboratory Last Values WBC 8.2 K/mm3 (4.5-11.0) 09/26/16 05:08 RBC 4.33 M/mm3 (3.65-5.03) 09/26/16 05:08 Hgb 12.4 gm/dl (11.8-15.2) 10/01/16 05:02 Hct 35.8 % (35.5-45.6) 10/01/16 05:02 MCV 86 fl (84-94) 09/26/16 05:08 MCH 29 pg (28-32) 09/26/16 05:08 MCHC 34 % (32-34) 09/26/16 05:08 RDW 14.3 % (13.2-15.2) 09/26/16 05:08 Plt Count 234 K/mm3 (140-440) 10/01/16 05:02 Lymph % (Auto) 13.2 % (13.4-35.0) L 09/26/16 05:08 [place] % (Auto) 6.4 % (0.0-7.3) 09/26/16 05:08 Eos % (Auto) 0.6 % (0.0-4.3) 09/26/16 05:08 Baso % (Auto) 0.5 % (0.0-1.8) 09/26/16 05:08 Lymph # 1.1 K/mm3 (1.2-5.4) L 09/26/16 05:08 [place] # 0.5 K/mm3 (0.0-0.8) 09/26/16 05:08 Eos # 0.0 K/mm3 (0.0-0.4) 09/26/16 05:08 Baso # 0.0 K/mm3 (0.0-0.1) 09/26/16 05:08 Seg Neutrophils % 79.3 % (40.0-70.0) H 09/26/16 05:08 Seg Neutrophils # 6.5 K/mm3 (1.8-7.7) 09/26/16 05:08 PT 13.1 Sec. (12.2-14.9) 09/25/16 11:00 INR 1.00 (0.87-1.13) 09/25/16 11:00 APTT 23.9 Sec. (24.2-36.6) L 09/25/16 11:00 Heparin Anti-Xa Level 0.25 U.I./ml (0.3-0.7) L 09/26/16 00:50 Sodium 144 mmol/L (137-145) 10/02/16 06:44 Potassium 2.6 mmol/L (3.6-5.0) L* D 10/02/16 06:44 Chloride 106.8 mmol/L (98-107) 10/02/16 06:44 Carbon Dioxide 22 mmol/L (22-30) 10/02/16 06:44 Anion Gap 18 mmol/L 10/02/16 06:44 BUN 13 mg/dL (9-20) 10/02/16 06:44 Creatinine 0.7 mg/dL (0.8-1.5) L 10/02/16 06:44 Estimated GFR > 60 ml/min 10/02/16 06:44 BUN/Creatinine Ratio 18.57 % 10/02/16 06:44 Glucose 92 mg/dL (75-100) 10/02/16 06:44 Lactic Acid 1.0 mmol/L (0.7-2.0) 09/25/16 06:52 Calcium 7.9 mg/dL (8.4-10.2) L 10/02/16 06:44 Magnesium 1.9 mg/dL (1.7-2.3) 09/27/16 11:14 Total Bilirubin 0.5 mg/dL (0.1-1.2) 10/02/16 06:44 AST 32 units/L (5-40) 10/02/16 06:44 ALT 22 units/L (7-56) 10/02/16 06:44 Alkaline Phosphatase 84 units/L (35-129) 10/02/16 06:44 Total Creatine Kinase 810 units/L (55-170) H 09/25/16 20:25 CK-MB (CK-2) 117.1 ng/mL (0.0-4.0) H 09/25/16 20:25 CK-MB (CK-2) Rel Index 14.4 (0-4) H 09/25/16 20:25 Troponin T 0.514 ng/mL (0.00-0.029) H* D 09/25/16 20:25 Total Protein 5.6 g/dL (6.3-8.2) L 10/02/16 06:44 Albumin 2.9 g/dL (3.9-5) L 10/02/16 06:44 Albumin/Globulin Ratio 1.1 % 10/02/16 06:44 Triglycerides 53 mg/dL (2-149) 09/25/16 09:47 Cholesterol 163 mg/dL (50-199) 09/25/16 09:47 LDL Cholesterol Direct 93 mg/dL (50-130) 09/25/16 09:47 HDL Cholesterol 60 mg/dL (40-59) H 09/25/16 09:47 Cholesterol/HDL Ratio 2.71 % 09/25/16 09:47 TSH 1.420 mlU/mL (0.270-4.200) 09/25/16 06:52 Urine Color Yellow (Yellow) 09/25/16 07:23 Urine Turbidity Cloudy (Clear) 09/25/16 07:23 Urine pH 7.0 (5.0-7.0) 09/25/16 07:23 Ur Specific [place] 1.017 (1.003-1.030) 09/25/16 07:23 Urine Protein <15 mg/dl mg/dL (Negative) 09/25/16 07:23 Urine Glucose (UA) 50 mg/dL (Negative) 09/25/16 07:23 Urine Ketones Neg mg/dL (Negative) 09/25/16 07:23 Urine Blood Neg (Negative) 09/25/16 07:23 Urine Nitrite Neg (Negative) 09/25/16 07:23 Urine Bilirubin Neg (Negative) 09/25/16 07:23 Urine Urobilinogen < 2.0 mg/dL (<2.0) 09/25/16 07:23 Ur Leukocyte Esterase Neg (Negative) 09/25/16 07:23 Urine WBC (Auto) < 1.0 /HPF (0.0-6.0) 09/25/16 07:23 Urine RBC (Auto) 4.0 /HPF (0.0-6.0) 09/25/16 07:23 U Epithel Cells (Auto) 2.0 /HPF (0-13.0) 09/25/16 07:23 Urine Bacteria (Auto) 2+ /HPF (Negative) 09/25/16 07:23 Amorphous Crystals 1+ 09/25/16 07:23 Urine Mucus Few /HPF 09/25/16 07:23 Salicylates < 0.3 mg/dL (2.8-20.0) L 09/25/16 03:56 Urine Opiates Screen Presumptive negative 09/25/16 07:23 Urine Methadone Screen Presumptive negative 09/25/16 07:23 Acetaminophen < 15.0 ug/mL (10.0-30.0) 09/25/16 03:56 Ur Barbiturates Screen Presumptive negative 09/25/16 07:23 Ur Phencyclidine Scrn Presumptive negative 09/25/16 07:23 Ur Amphetamines Screen Presumptive negative 09/25/16 07:23 U Benzodiazepines Scrn Presumptive negative 09/25/16 07:23 Urine Cocaine Screen Presumptive negative 09/25/16 07:23 U Marijuana (THC) Screen Presumptive negative 09/25/16 07:23 Drugs of Abuse Note Disclamer 09/25/16 07:23 Plasma/Serum Alcohol < 0.01 gm% (0-0.07) 09/25/16 03:56 hypokalemia
[2016-10-02] MEDS: ASPIRIN PO SCH (10:37)
[2016-10-02] MEDS: LOPRESSOR PO SCH (10:37)
[2016-10-02] MEDS: RisperDAL PO SCH ×2 (10:38→21:48)
[2016-10-02] MEDS: FLOMAX PO SCH (10:38)
[2016-10-02] MEDS: ZESTRIL PO SCH (10:38)
[2016-10-02] MEDS: LOVENOX SUB-Q SCH (10:38)
[2016-10-02] MEDS ORDERED: LOPRESSOR PO SCH (11:06)
--- NOTE | 2016-10-02 11:08 | Progress Note ---
Assessment and Plan Altered mental status - improving acute change per family members neuro following await psych evaluation NSTEMI type 2 pt. not a candidate for invasive mgt. given AMS continue ASA, statin Paroxysmal atrial fibrillation currently SR-->will continue to observe on the monitor optimize electrolytes increase metoprolol Cardiomyopathy Echo 09/2016: moderate LVH, EF 25-30%, impaired relaxation currently compensated add lisinopril for lv dsyfunction Fall Confusion hypokalemia being treated Subjective Date of service: 10/02/16 Principal diagnosis: elevated troponin Interval history: pt is off restraints and no chest pain or sob Objective Vital Signs Temp Pulse Pulse Pulse Pulse Resp BP 10/02/16 07:45 98.6 F 80 20 10/02/16 05:00 70 10/02/16 04:54 98.3 F 74 20 10/01/16 19:47 98.0 F 80 20 10/01/16 17:00 77 10/01/16 15:54 98.2 F 10/01/16 15:52 79 126/61 BP BP Pulse Ox 10/02/16 07:45 129/60 98 10/02/16 05:00 10/02/16 04:54 120/56 92 10/01/16 19:47 119/60 95 10/01/16 17:00 10/01/16 15:54 10/01/16 15:52 - Physical Examination General: No Apparent Distress (pt. confused) HEENT: Positive: EOMI, Normocephaly, Mucus Membranes Moist Neck: Positive: neck supple, trachea midline Cardiac: Positive: Reg Rate and Rhythm Lungs: Positive: clear to auscultation Neuro: Positive: Other (more alert today) Abdomen: Positive: Soft, Active Bowel Sounds. Negative: Tender Skin: Positive: Clear. Negative: Rash Musculoskeletal: Normal Range of Motion Extremities: Present: normal. Absent: edema - Labs and Meds Cardiac Enzymes 10/02/16 Range/Units 06:44 AST 32 (5-40) units/L Comprehensive Metabolic Panel 10/02/16 Range/Units 06:44 Sodium 144 (137-145) mmol/L Potassium 2.6 L* D (3.6-5.0) mmol/L Chloride 106.8 (98-107) mmol/L Carbon Dioxide 22 (22-30) mmol/L BUN 13 (9-20) mg/dL Creatinine 0.7 L (0.8-1.5) mg/dL Glucose 92 (75-100) mg/dL Calcium 7.9 L (8.4-10.2) mg/dL AST 32 (5-40) units/L ALT 22 (7-56) units/L Alkaline Phosphatase 84 (35-129) units/L Total Protein 5.6 L (6.3-8.2) g/dL Albumin 2.9 L (3.9-5) g/dL - Imaging and Cardiology EKG: image reviewed Echo: report reviewed (09/2016: moderate LVH, EF 25-30%, impaired relaxation ) - Telemetry EKG Rhythm: Sinus Rhythm (nsr at 70) - EKG Sinus rhythms and dysrhythmias: sinus tachycardia Repolarization changes or abnormalities: ST or T wave suggestive of ischemia Myocardial infarction: septal [place] (old age or ind
[2016-10-02 14:32] LABS: BUN/Creatinine Ratio 21.42; Blood Urea Nitrogen 15 mg/dL (9-20); Carbon Dioxide 23 mmol/L (22-30); Glucose 166 mg/dL (75-100); Sodium 145 mmol/L (137-145)
[2016-10-02 14:33] LABS: Anion Gap 17 mmol/L; Potassium 2.8 mmol/L (3.6-5.0)
[2016-10-02] MEDS: MORPHINE IV PRN (21:49)
[2016-10-03 06:16] LABS: Hematocrit 34.2 % (35.5-45.6); Hemoglobin 11.9 gm/dl (11.8-15.2)
[2016-10-03] MEDS ORDERED: MAGNESIUM SULFATE 2GM/50ML 50 ML IV ONE (09:22)
[2016-10-03] MEDS: LOVENOX SUB-Q SCH (10:08)
[2016-10-03] MEDS: FLOMAX PO SCH (10:09)
[2016-10-03] MEDS: ASPIRIN PO SCH (10:09)
[2016-10-03] MEDS: RisperDAL PO SCH ×2 (10:10→21:28)
[2016-10-03] MEDS: ZESTRIL PO SCH (10:10)
[2016-10-03] MEDS: LOPRESSOR PO SCH ×2 (10:10→21:27)
--- NOTE | 2016-10-03 10:38 | Progress Note ---
Assessment and Plan Assessment and plan: --Altered level of consciousness/metabolic encephalopathy Probably secondary to accidental overdose with Xanax Today patient is alert awake oriented 3 back to baseline -- NSTEMI; denies chest pain or shortness of breath Continue and management Cardiology following Possible heart cath tomorrow -- Syncope Probably secondary to overusage of Xanax and Benadryl , no new episodes of syncope Patient is alert awake oriented 3 back to baseline --Hypertension Well-controlled , continue current management --Paroxysmal atrial fibrillation Rate controlled, continue beta blockers --Cardiomyopathy ejection fraction of 25-30% Well compensated, continue beta blockers and lisinopril added --Hypokalemia; corrected Closely monitor electrolytes --Episode of nonsustained VT Probably secondary to severe congestive heart failure systolic dysfunction Now stable, cardiology following --DVT prophylaxis; with Lovenox --CODE STATUS; full code Follow heart cath tomorrow, if negative and if patient is stable Can be discharged home with possible home health Plan of care discussed with the patient as well as the nurse I also discussed the case with the padded products inspector trimmer History Interval history: Patient seen and evaluated this morning in his room medical records reviewed Sitting and on his bed, denies chest pain shortness of breath Denies headache dizziness At awake oriented 3 Cardiology evaluation noted and appreciated, recommend heart cath tomorrow Vital signs reviewed stable Hospitalist Physical - Constitutional Vitals: Temp Pulse Resp BP Pulse Ox 98.5 F 80 20 126/65 96 10/03/16 07:32 10/03/16 07:32 10/03/16 07:32 10/03/16 07:32 10/03/16 07:32 General appearance: Present: no acute distress, well-nourished - EENT Eyes: Present: PERRL, EOM intact - Neck Neck: Present: supple, normal ROM - Respiratory Respiratory effort: normal Respiratory: negative: rales, rhonchi, wheezing - Cardiovascular Rhythm: regular Heart Sounds: Present: S1 & S2 - Extremities Extremities: no ischemia, pulses intact, pulses symmetrical Peripheral Pulses: within normal limits - Abdominal General gastrointestinal: soft, non-tender, non-distended, normal bowel sounds - Integumentary Integumentary: Present: clear, warm - Psychiatric Psychiatric: appropriate mood/affect, cooperative - Neurologic Neurologic: CNII-XII intact, moves all extremities Results - Labs CBC & Chem 7: 10/03/16 04:41 10/02/16 20:38 Labs: Laboratory Last Values WBC 8.2 K/mm3 (4.5-11.0) 09/26/16 05:08 RBC 4.33 M/mm3 (3.65-5.03) 09/26/16 05:08 Hgb 11.9 gm/dl (11.8-15.2) 10/03/16 04:41 Hct 34.2 % (35.5-45.6) L 10/03/16 04:41 MCV 86 fl (84-94) 09/26/16 05:08 MCH 29 pg (28-32) 09/26/16 05:08 MCHC 34 % (32-34) 09/26/16 05:08 RDW 14.3 % (13.2-15.2) 09/26/16 05:08 Plt Count 223 K/mm3 (140-440) 10/03/16 04:41 Lymph % (Auto) 13.2 % (13.4-35.0) L 09/26/16 05:08 [place] % (Auto) 6.4 % (0.0-7.3) 09/26/16 05:08 Eos % (Auto) 0.6 % (0.0-4.3) 09/26/16 05:08 Baso % (Auto) 0.5 % (0.0-1.8) 09/26/16 05:08 Lymph # 1.1 K/mm3 (1.2-5.4) L 09/26/16 05:08 [place] # 0.5 K/mm3 (0.0-0.8) 09/26/16 05:08 Eos # 0.0 K/mm3 (0.0-0.4) 09/26/16 05:08 Baso # 0.0 K/mm3 (0.0-0.1) 09/26/16 05:08 Seg Neutrophils % 79.3 % (40.0-70.0) H 09/26/16 05:08 Seg Neutrophils # 6.5 K/mm3 (1.8-7.7) 09/26/16 05:08 PT 13.1 Sec. (12.2-14.9) 09/25/16 11:00 INR 1.00 (0.87-1.13) 09/25/16 11:00 APTT 23.9 Sec. (24.2-36.6) L 09/25/16 11:00 Heparin Anti-Xa Level 0.25 U.I./ml (0.3-0.7) L 09/26/16 00:50 Sodium 145 mmol/L (137-145) 10/02/16 13:41 Potassium 3.9 mmol/L (3.6-5.0) D 10/02/16 20:38 Chloride 108.0 mmol/L (98-107) H 10/02/16 13:41 Carbon Dioxide 23 mmol/L (22-30) 10/02/16 13:41 Anion Gap 17 mmol/L 10/02/16 13:41 BUN 15 mg/dL (9-20) 10/02/16 13:41 Creatinine 0.7 mg/dL (0.8-1.5) L 10/02/16 13:41 Estimated GFR > 60 ml/min 10/02/16 13:41 BUN/Creatinine Ratio 21.42 % 10/02/16 13:41 Glucose 166 mg/dL (75-100) H 10/02/16 13:41 Lactic Acid 1.0 mmol/L (0.7-2.0) 09/25/16 06:52 Calcium 8.0 mg/dL (8.4-10.2) L 10/02/16 13:41 Magnesium 1.9 mg/dL (1.7-2.3) 09/27/16 11:14 Total Bilirubin 0.5 mg/dL (0.1-1.2) 10/02/16 06:44 AST 32 units/L (5-40) 10/02/16 06:44 ALT 22 units/L (7-56) 10/02/16 06:44 Alkaline Phosphatase 84 units/L (35-129) 10/02/16 06:44 Total Creatine Kinase 810 units/L (55-170) H 09/25/16 20:25 CK-MB (CK-2) 117.1 ng/mL (0.0-4.0) H 09/25/16 20:25 CK-MB (CK-2) Rel Index 14.4 (0-4) H 09/25/16 20:25 Troponin T 0.514 ng/mL (0.00-0.029) H* D 09/25/16 20:25 Total Protein 5.6 g/dL (6.3-8.2) L 10/02/16 06:44 Albumin 2.9 g/dL (3.9-5) L 10/02/16 06:44 Albumin/Globulin Ratio 1.1 % 10/02/16 06:44 Triglycerides 53 mg/dL (2-149) 09/25/16 09:47 Cholesterol 163 mg/dL (50-199) 09/25/16 09:47 LDL Cholesterol Direct 93 mg/dL (50-130) 09/25/16 09:47 HDL Cholesterol 60 mg/dL (40-59) H 09/25/16 09:47 Cholesterol/HDL Ratio 2.71 % 09/25/16 09:47 TSH 1.420 mlU/mL (0.270-4.200) 09/25/16 06:52 Urine Color Yellow (Yellow) 09/25/16 07:23 Urine Turbidity Cloudy (Clear) 09/25/16 07:23 Urine pH 7.0 (5.0-7.0) 09/25/16 07:23 Ur Specific [place] 1.017 (1.003-1.030) 09/25/16 07:23 Urine Protein <15 mg/dl mg/dL (Negative) 09/25/16 07:23 Urine Glucose (UA) 50 mg/dL (Negative) 09/25/16 07:23 Urine Ketones Neg mg/dL (Negative) 09/25/16 07:23 Urine Blood Neg (Negative) 09/25/16 07:23 Urine Nitrite Neg (Negative) 09/25/16 07:23 Urine Bilirubin Neg (Negative) 09/25/16 07:23 Urine Urobilinogen < 2.0 mg/dL (<2.0) 09/25/16 07:23 Ur Leukocyte Esterase Neg (Negative) 09/25/16 07:23 Urine WBC (Auto) < 1.0 /HPF (0.0-6.0) 09/25/16 07:23 Urine RBC (Auto) 4.0 /HPF (0.0-6.0) 09/25/16 07:23 U Epithel Cells (Auto) 2.0 /HPF (0-13.0) 09/25/16 07:23 Urine Bacteria (Auto) 2+ /HPF (Negative) 09/25/16 07:23 Amorphous Crystals 1+ 09/25/16 07:23 Urine Mucus Few /HPF 09/25/16 07:23 Salicylates < 0.3 mg/dL (2.8-20.0) L 09/25/16 03:56 Urine Opiates Screen Presumptive negative 09/25/16 07:23 Urine Methadone Screen Presumptive negative 09/25/16 07:23 Acetaminophen < 15.0 ug/mL (10.0-30.0) 09/25/16 03:56 Ur Barbiturates Screen Presumptive negative 09/25/16 07:23 Ur Phencyclidine Scrn Presumptive negative 09/25/16 07:23 Ur Amphetamines Screen Presumptive negative 09/25/16 07:23 U Benzodiazepines Scrn Presumptive negative 09/25/16 07:23 Urine Cocaine Screen Presumptive negative 09/25/16 07:23 U Marijuana (THC) Screen Presumptive negative 09/25/16 07:23 Drugs of Abuse Note Disclamer 09/25/16 07:23 Plasma/Serum Alcohol < 0.01 gm% (0-0.07) 09/25/16 03:56
--- NOTE | 2016-10-03 11:28 | Progress Note ---
Assessment and Plan Altered mental status -back to baseline NSTEMI type 2 In view of patient's 13 beat and ostium V. tach will continue ASA, statin Paroxysmal atrial fibrillation currently SR-->will continue to observe on the monitor optimize electrolytes increase metoprolol Cardiomyopathy Echo 09/2016: moderate LVH, EF 25-30%, impaired relaxation currently compensated add lisinopril for lv dsyfunction Fall Confusion resolved hypokalemia resolved Recommend in view of patient's nonstaining V. tach LV dysfunction increase Lopressor 50 twice a day and magnesium , cardiac catheterization for definitive diagnosis explain this to the patient's and the patient Agreeable Subjective Date of service: 10/03/16 Principal diagnosis: elevated troponin Interval history: Patient is awake and alert denies any chest pain or palpitations or shortness of breath Objective Vital Signs Temp Pulse Pulse Pulse Pulse Resp BP 10/03/16 07:32 98.5 F 80 20 10/03/16 04:05 98.0 F 79 20 10/03/16 01:25 98.8 F 83 20 10/03/16 00:55 73 10/02/16 21:50 70 92/52 10/02/16 21:36 97.6 F 70 20 10/02/16 20:25 75 20 10/02/16 17:36 97.5 F L 75 20 10/02/16 15:54 80 10/02/16 11:57 98.2 F 69 20 BP Pulse Ox 10/03/16 07:32 126/65 96 10/03/16 04:05 124/65 97 10/03/16 01:25 130/63 95 10/03/16 00:55 10/02/16 21:50 10/02/16 21:36 92/52 96 10/02/16 20:25 10/02/16 17:36 121/65 97 10/02/16 15:54 10/02/16 11:57 104/56 98 - Physical Examination General: No Apparent Distress (pt. confused) HEENT: Positive: EOMI, Normocephaly, Mucus Membranes Moist Neck: Positive: neck supple, trachea midline Cardiac: Positive: Reg Rate and Rhythm Lungs: Positive: clear to auscultation Neuro: Positive: Grossly Intact Abdomen: Positive: Soft, Active Bowel Sounds. Negative: Tender Skin: Positive: Clear. Negative: Rash Musculoskeletal: Normal Range of Motion Extremities: Present: normal. Absent: edema - Labs and Meds CBC 10/03/16 Range/Units 04:41 Hgb 11.9 (11.8-15.2) gm/dl Hct 34.2 L (35.5-45.6) % Plt Count 223 (140-440) K/mm3 Comprehensive Metabolic Panel 10/02/16 10/02/16 Range/Units 13:41 20:38 Sodium 145 (137-145) mmol/L Potassium 2.8 L* 3.9 D (3.6-5.0) mmol/L Chloride 108.0 H (98-107) mmol/L Carbon Dioxide 23 (22-30) mmol/L BUN 15 (9-20) mg/dL Creatinine 0.7 L (0.8-1.5) mg/dL Glucose 166 H (75-100) mg/dL Calcium 8.0 L (8.4-10.2) mg/dL - Imaging and Cardiology EKG: image reviewed Echo: report reviewed (09/2016: moderate LVH, EF 25-30%, impaired relaxation ) - Telemetry EKG Rhythm: Sinus Rhythm (13 beat of nonsustained V. tach) - EKG Sinus rhythms and dysrhythmias: sinus tachycardia Repolarization changes or abnormalities: ST or T wave suggestive of ischemia Myocardial infarction: septal VT (old age or ind
[2016-10-03] MEDS ORDERED: NACL 0.9% 500 ML 500 ML IV SCH (12:00)
[2016-10-04 06:48] LABS: Hematocrit 39.4 % (35.5-45.6); Hemoglobin 13.6 gm/dl (11.8-15.2); Mean Corpuscular HGB Conc 35 % (32-34); Mean Corpuscular Hemoglobin 29 pg (28-32); Mean Corpuscular Volume 85 fl (84-94); Platelet Count 340 K/mm3 (140-440); Red Blood Count 4.64 M/mm3 (3.65-5.03); Red Cell Distribution Width 14.6 % (13.2-15.2); White Blood Count 14.7 K/mm3 (4.5-11.0)
[2016-10-04 06:59] LABS: INR 1.04 (0.87-1.13)
[2016-10-04 07:00] LABS: Partial Thromboplastin Time 26.9 Sec. (24.2-36.6)
[2016-10-04 07:05] LABS: Anion Gap 20 mmol/L; BUN/Creatinine Ratio 23.75; Blood Urea Nitrogen 19 mg/dL (9-20); Calcium 8.3 mg/dL (8.4-10.2); Carbon Dioxide 20 mmol/L (22-30); Chloride 102.9 mmol/L (98-107); Glucose 207 mg/dL (75-100); Magnesium 1.7 mg/dL (1.7-2.3); Potassium 3.2 mmol/L (3.6-5.0); Sodium 140 mmol/L (137-145)
[2016-10-04 07:35] LABS: Basophils % (Manual) 0 % (0.0-1.8); Blastocytes % (Manual) 0 %; Eosinophils % (Manual) 0 % (0.0-4.3)
[2016-10-04 07:36] LABS: Acanthocytes Few; Anisocytosis 1+; Burr Cells Few; Diff Status Complete; Microcytosis Few; Poikilocytosis 1+
[2016-10-04] MEDS ORDERED: K-DUR PO ONE (09:00)
[2016-10-04] MEDS: RisperDAL PO SCH ×2 (09:00→21:48)
[2016-10-04] MEDS: LOPRESSOR PO SCH ×2 (09:00→21:49)
[2016-10-04] MEDS: ZESTRIL PO SCH (09:00)
[2016-10-04] MEDS: ASPIRIN PO SCH (09:00)
[2016-10-04] MEDS: FLOMAX PO SCH (09:00)
[2016-10-04] MEDS: MORPHINE IV PRN (09:01)
--- NOTE | 2016-10-04 09:46 | Progress Note ---
Assessment and Plan Altered mental status -is back and screaming awaiting psych followup NSTEMI type 2 In view of patient's 13 beat and ostium V. tach will continue ASA, statin Paroxysmal atrial fibrillation currently SR-->will continue to observe on the monitor optimize electrolytes increase metoprolol Cardiomyopathy Echo 09/2016: moderate LVH, EF 25-30%, impaired relaxation currently compensated add lisinopril for lv dsyfunction Fall Confusion is back hypokalemia replace Recommend cancel cardiac cath, treat medically for lv dsyfunction and awaiting family and discussed with nurse. unclear reason for change of mental status from yesterday Subjective Date of service: 10/04/16 Principal diagnosis: elevated troponin Interval history: pt in restraints and is altered again Objective Vital Signs Temp Pulse Pulse Pulse Resp BP BP 10/04/16 08:00 97.2 F L 112 H 22 126/73 10/04/16 05:00 121 H 10/04/16 04:15 98.5 F 126 H 20 135/87 10/04/16 00:41 98.0 F 84 22 135/79 10/03/16 20:49 98.0 F 82 24 122/58 10/03/16 17:20 85 10/03/16 16:26 98.4 F 72 20 120/60 10/03/16 11:54 98.1 F 70 20 120/58 Pulse Ox 10/04/16 08:00 81 L 10/04/16 05:00 10/04/16 04:15 98 10/04/16 00:41 94 10/03/16 20:49 97 10/03/16 17:20 10/03/16 16:26 96 10/03/16 11:54 96 - Physical Examination General: No Apparent Distress (pt. confused) HEENT: Positive: EOMI, Normocephaly, Mucus Membranes Moist Neck: Positive: neck supple, trachea midline Cardiac: Positive: Reg Rate and Rhythm Lungs: Positive: clear to auscultation Neuro: Positive: Other (altered and agaitated) Abdomen: Positive: Soft, Active Bowel Sounds. Negative: Tender Skin: Positive: Clear. Negative: Rash Musculoskeletal: Normal Range of Motion Extremities: Present: normal. Absent: edema - Labs and Meds Coagulation 10/04/16 Range/Units 05:57 PT 13.5 (12.2-14.9) Sec. INR 1.04 (0.87-1.13) APTT 26.9 (24.2-36.6) Sec. CBC 10/04/16 Range/Units 05:57 WBC 14.7 H (4.5-11.0) K/mm3 RBC 4.64 (3.65-5.03) M/mm3 Hgb 13.6 (11.8-15.2) gm/dl Hct 39.4 (35.5-45.6) % Plt Count 340 (140-440) K/mm3 Comprehensive Metabolic Panel 10/04/16 Range/Units 05:57 Sodium 140 (137-145) mmol/L Potassium 3.2 L (3.6-5.0) mmol/L Chloride 102.9 (98-107) mmol/L Carbon Dioxide 20 L (22-30) mmol/L BUN 19 (9-20) mg/dL Creatinine 0.8 (0.8-1.5) mg/dL Glucose 207 H (75-100) mg/dL Calcium 8.3 L (8.4-10.2) mg/dL - Imaging and Cardiology EKG: image reviewed Echo: report reviewed (09/2016: moderate LVH, EF 25-30%, impaired relaxation ) - EKG Sinus rhythms and dysrhythmias: sinus tachycardia Repolarization changes or abnormalities: ST or T wave suggestive of ischemia Myocardial infarction: septal PR (old age or ind
--- NOTE | 2016-10-04 10:14 | XRay Report ---
PORTABLE CHEST INDICATION: Chest congestion. COMPARISON: 09/25/2016 FINDINGS: Portable, frontal chest radiograph demonstrates increased interstitial markings and somewhat hazy prominence of bg bilaterally. No large pleural effusions. Slight pleural thickening along the right minor fissure. Stable cardiomediastinal silhouette, small 3 mm linear density projecting over the left mid lung, EKG leads and demineralized bones with few degenerative changes. CONCLUSION: Worsening interstitial edema radiographically, as described. Please correlate. Thank you for the opportunity to participate in this patient's care.
[2016-10-04] MEDS ORDERED: PROVENTIL IH PRN (10:18)
[2016-10-04] MEDS: DUONEB 0.5 MG-3 MG/3 ML SOLN IH SCH ×3 (10:31→19:48)
[2016-10-04] MEDS: LOVENOX SUB-Q SCH (10:44)
[2016-10-04] MEDS ORDERED: LASIX IV ONE (13:54)
--- NOTE | 2016-10-04 14:00 | Progress Note ---
Assessment and Plan Assessment and plan: --Acute psychosis/Delirium supportive care/psych evaluation --Pulmonary edema on CXR Exacerbation CHF systolic failure IV lasix and closely monitor --Hypokalemia; corrected Closely monitor electrolytes --Altered level of consciousness/metabolic encephalopathy Probably secondary to accidental overdose with Xanax Today patient is alert awake oriented 3 back to baseline -- NSTEMI; denies chest pain or shortness of breath Continue and management Cardiology following Possible heart cath tomorrow -- Syncope Probably secondary to overusage of Xanax and Benadryl , no new episodes of syncope Patient is alert awake oriented 3 back to baseline --Hypertension Well-controlled , continue current management --Paroxysmal atrial fibrillation Rate controlled, continue beta blockers --Episode of nonsustained VT Probably secondary to severe congestive heart failure systolic dysfunction Now stable, cardiology following --DVT prophylaxis; with Lovenox --CODE STATUS discussed with the family at the bedside They requested DO NOT RESUSCITATE status History Interval history: Patient is agitated,agressive and psychotic and loud Restraints for safety, family at the bedside Patient calm down after a few minutes confused and delirious In mild distress, vital signs reviewed stable Hospitalist Physical - Constitutional Vitals: Temp Pulse Resp BP Pulse Ox 97.4 F L 28 L 28 H 136/70 96 10/04/16 12:15 10/04/16 12:15 10/04/16 12:15 10/04/16 12:15 10/04/16 12:15 General appearance: Present: no acute distress, well-nourished - EENT Eyes: Present: PERRL, EOM intact - Neck Neck: Present: supple, normal ROM - Respiratory Respiratory effort: normal Respiratory: bilateral: diminished, negative: rales, rhonchi, wheezing - Cardiovascular Rhythm: regular Heart Sounds: Present: S1 & S2 - Extremities Extremities: no ischemia, pulses intact, pulses symmetrical Peripheral Pulses: within normal limits - Abdominal General gastrointestinal: soft, non-tender, non-distended, normal bowel sounds - Integumentary Integumentary: Present: clear, warm - Psychiatric Psychiatric: agitated, other (combative at times) - Neurologic Neurologic: moves all extremities Results - Labs CBC & Chem 7: 10/04/16 05:57 10/04/16 05:57 Labs: Laboratory Last Values WBC 14.7 K/mm3 (4.5-11.0) H 10/04/16 05:57 RBC 4.64 M/mm3 (3.65-5.03) 10/04/16 05:57 Hgb 13.6 gm/dl (11.8-15.2) 10/04/16 05:57 Hct 39.4 % (35.5-45.6) 10/04/16 05:57 MCV 85 fl (84-94) 10/04/16 05:57 MCH 29 pg (28-32) 10/04/16 05:57 MCHC 35 % (32-34) H 10/04/16 05:57 RDW 14.6 % (13.2-15.2) 10/04/16 05:57 Plt Count 340 K/mm3 (140-440) 10/04/16 05:57 Lymph % (Auto) 13.2 % (13.4-35.0) L 09/26/16 05:08 [place] % (Auto) 6.4 % (0.0-7.3) 09/26/16 05:08 Eos % (Auto) 0.6 % (0.0-4.3) 09/26/16 05:08 Baso % (Auto) 0.5 % (0.0-1.8) 09/26/16 05:08 Lymph # 1.1 K/mm3 (1.2-5.4) L 09/26/16 05:08 [place] # 0.5 K/mm3 (0.0-0.8) 09/26/16 05:08 Eos # 0.0 K/mm3 (0.0-0.4) 09/26/16 05:08 Baso # 0.0 K/mm3 (0.0-0.1) 09/26/16 05:08 Add Manual Diff Complete 10/04/16 05:57 Total Counted 100 10/04/16 05:57 Seg Neutrophils % Communications Station Manager 10/04/16 05:57 Seg Neuts % (Manual) 92.0 % (40.0-70.0) H 10/04/16 05:57 Band Neutrophils % 1.0 % 10/04/16 05:57 Lymphocytes % (Manual) 3.0 % (13.4-35.0) L 10/04/16 05:57 Reactive Lymphs % (Man) 0 % 10/04/16 05:57 Monocytes % (Manual) 2.0 % (0.0-7.3) 10/04/16 05:57 Eosinophils % (Manual) 0 % (0.0-4.3) 10/04/16 05:57 Basophils % (Manual) 0 % (0.0-1.8) 10/04/16 05:57 Metamyelocytes % 0 % 10/04/16 05:57 Myelocytes % 1.0 % 10/04/16 05:57 Promyelocytes % 1.0 % 10/04/16 05:57 Blast Cells % 0 % 10/04/16 05:57 Nucleated RBC % Not Reportable 10/04/16 05:57 Seg Neutrophils # 6.5 K/mm3 (1.8-7.7) 09/26/16 05:08 Seg Neutrophils # Man 13.5 K/mm3 (1.8-7.7) H 10/04/16 05:57 Band Neutrophils # 0.1 K/mm3 10/04/16 05:57 Lymphocytes # (Manual) 0.4 K/mm3 (1.2-5.4) L 10/04/16 05:57 Abs React Lymphs (Man) 0.0 K/mm3 10/04/16 05:57 Monocytes # (Manual) 0.3 K/mm3 (0.0-0.8) 10/04/16 05:57 Eosinophils # (Manual) 0.0 K/mm3 (0.0-0.4) 10/04/16 05:57 Basophils # (Manual) 0.0 K/mm3 (0.0-0.1) 10/04/16 05:57 Metamyelocytes # 0.0 K/mm3 10/04/16 05:57 Myelocytes # 0.1 K/mm3 10/04/16 05:57 Promyelocytes # 0.1 K/mm3 10/04/16 05:57 Blast Cells # 0.0 K/mm3 10/04/16 05:57 WBC Morphology Not Reportable 10/04/16 05:57 Hypersegmented Neuts Not Reportable 10/04/16 05:57 Hyposegmented Neuts Not Reportable 10/04/16 05:57 Hypogranular Neuts Not Reportable 10/04/16 05:57 Smudge Cells Not Reportable 10/04/16 05:57 Toxic Granulation Not Reportable 10/04/16 05:57 Toxic Vacuolation Not Reportable 10/04/16 05:57 Dohle Bodies Not Reportable 10/04/16 05:57 Pelger-Huet Anomaly Not Reportable 10/04/16 05:57 Evonne Rods Not Reportable 10/04/16 05:57 Platelet Estimate Appears normal 10/04/16 05:57 Clumped Platelets Not Reportable 10/04/16 05:57 Plt Clumps, EDTA Not Reportable 10/04/16 05:57 Large Platelets Not Reportable 10/04/16 05:57 Giant Platelets Not Reportable 10/04/16 05:57 Platelet Satelliting Not Reportable 10/04/16 05:57 Plt Morphology Comment Not Reportable 10/04/16 05:57 RBC Morphology Not Reportable 10/04/16 05:57 Dimorphic RBCs Not Reportable 10/04/16 05:57 Polychromasia Not Reportable 10/04/16 05:57 Hypochromasia Not Reportable 10/04/16 05:57 Poikilocytosis 1+ 10/04/16 05:57 Anisocytosis 1+ 10/04/16 05:57 Microcytosis Few 10/04/16 05:57 Macrocytosis Not Reportable 10/04/16 05:57 Spherocytes Not Reportable 10/04/16 05:57 Pappenheimer Bodies Not Reportable 10/04/16 05:57 Sickle Cells Not Reportable 10/04/16 05:57 Target Cells Not Reportable 10/04/16 05:57 Tear Drop Cells Not Reportable 10/04/16 05:57 Ovalocytes Not Reportable 10/04/16 05:57 Helmet Cells Not Reportable 10/04/16 05:57 [place] Bodies Not Reportable 10/04/16 05:57 [place] Rings Not Reportable 10/04/16 05:57 [place] Cells Few 10/04/16 05:57 Bite Cells Not Reportable 10/04/16 05:57 Crenated Cell Not Reportable 10/04/16 05:57 Elliptocytes Not Reportable 10/04/16 05:57 Acanthocytes (Spur) Few 10/04/16 05:57 Rouleaux Not Reportable 10/04/16 05:57 Hemoglobin C Crystals Not Reportable 10/04/16 05:57 Schistocytes Not Reportable 10/04/16 05:57 Malaria parasites Not Reportable 10/04/16 05:57 [place] Bodies Not Reportable 10/04/16 05:57 Hem Pathologist Commnt No 10/04/16 05:57 PT 13.5 Sec. (12.2-14.9) 10/04/16 05:57 INR 1.04 (0.87-1.13) 10/04/16 05:57 APTT 26.9 Sec. (24.2-36.6) 10/04/16 05:57 Heparin Anti-Xa Level 0.25 U.I./ml (0.3-0.7) L 09/26/16 00:50 Sodium 140 mmol/L (137-145) 10/04/16 05:57 Potassium 3.2 mmol/L (3.6-5.0) L 10/04/16 05:57 Chloride 102.9 mmol/L (98-107) 10/04/16 05:57 Carbon Dioxide 20 mmol/L (22-30) L 10/04/16 05:57 Anion Gap 20 mmol/L 10/04/16 05:57 BUN 19 mg/dL (9-20) 10/04/16 05:57 Creatinine 0.8 mg/dL (0.8-1.5) 10/04/16 05:57 Estimated GFR > 60 ml/min 10/04/16 05:57 BUN/Creatinine Ratio 23.75 % 10/04/16 05:57 Glucose 207 mg/dL (75-100) H 10/04/16 05:57 POC Glucose 213 (70-105) H 10/04/16 06:13 Lactic Acid 1.0 mmol/L (0.7-2.0) 09/25/16 06:52 Calcium 8.3 mg/dL (8.4-10.2) L 10/04/16 05:57 Magnesium 1.7 mg/dL (1.7-2.3) 10/04/16 05:57 Total Bilirubin 0.5 mg/dL (0.1-1.2) 10/02/16 06:44 AST 32 units/L (5-40) 10/02/16 06:44 ALT 22 units/L (7-56) 10/02/16 06:44 Alkaline Phosphatase 84 units/L (35-129) 10/02/16 06:44 Total Creatine Kinase 810 units/L (55-170) H 09/25/16 20:25 CK-MB (CK-2) 117.1 ng/mL (0.0-4.0) H 09/25/16 20:25 CK-MB (CK-2) Rel Index 14.4 (0-4) H 09/25/16 20:25 Troponin T 0.514 ng/mL (0.00-0.029) H* D 09/25/16 20:25 Total Protein 5.6 g/dL (6.3-8.2) L 10/02/16 06:44 Albumin 2.9 g/dL (3.9-5) L 10/02/16 06:44 Albumin/Globulin Ratio 1.1 % 10/02/16 06:44 Triglycerides 53 mg/dL (2-149) 09/25/16 09:47 Cholesterol 163 mg/dL (50-199) 09/25/16 09:47 LDL Cholesterol Direct 93 mg/dL (50-130) 09/25/16 09:47 HDL Cholesterol 60 mg/dL (40-59) H 09/25/16 09:47 Cholesterol/HDL Ratio 2.71 % 09/25/16 09:47 TSH 1.420 mlU/mL (0.270-4.200) 09/25/16 06:52 Urine Color Yellow (Yellow) 09/25/16 07:23 Urine Turbidity Cloudy (Clear) 09/25/16 07:23 Urine pH 7.0 (5.0-7.0) 09/25/16 07:23 Ur Specific [place] 1.017 (1.003-1.030) 09/25/16 07:23 Urine Protein <15 mg/dl mg/dL (Negative) 09/25/16 07:23 Urine Glucose (UA) 50 mg/dL (Negative) 09/25/16 07:23 Urine Ketones Neg mg/dL (Negative) 09/25/16 07:23 Urine Blood Neg (Negative) 09/25/16 07:23 Urine Nitrite Neg (Negative) 09/25/16 07:23 Urine Bilirubin Neg (Negative) 09/25/16 07:23 Urine Urobilinogen < 2.0 mg/dL (<2.0) 09/25/16 07:23 Ur Leukocyte Esterase Neg (Negative) 09/25/16 07:23 Urine WBC (Auto) < 1.0 /HPF (0.0-6.0) 09/25/16 07:23 Urine RBC (Auto) 4.0 /HPF (0.0-6.0) 09/25/16 07:23 U Epithel Cells (Auto) 2.0 /HPF (0-13.0) 09/25/16 07:23 Urine Bacteria (Auto) 2+ /HPF (Negative) 09/25/16 07:23 Amorphous Crystals 1+ 09/25/16 07:23 Urine Mucus Few /HPF 09/25/16 07:23 Salicylates < 0.3 mg/dL (2.8-20.0) L 09/25/16 03:56 Urine Opiates Screen Presumptive negative 09/25/16 07:23 Urine Methadone Screen Presumptive negative 09/25/16 07:23 Acetaminophen < 15.0 ug/mL (10.0-30.0) 09/25/16 03:56 Ur Barbiturates Screen Presumptive negative 09/25/16 07:23 Ur Phencyclidine Scrn Presumptive negative 09/25/16 07:23 Ur Amphetamines Screen Presumptive negative 09/25/16 07:23 U Benzodiazepines Scrn Presumptive negative 09/25/16 07:23 Urine Cocaine Screen Presumptive negative 09/25/16 07:23 U Marijuana (THC) Screen Presumptive negative 09/25/16 07:23 Drugs of Abuse Note Disclamer 09/25/16 07:23 Plasma/Serum Alcohol < 0.01 gm% (0-0.07) 09/25/16 03:56
[2016-10-05] MEDS: DUONEB 0.5 MG-3 MG/3 ML SOLN IH SCH ×5 (02:06→19:36)
[2016-10-05 05:57] LABS: Basophils % (Auto) 0.3 % (0.0-1.8); Eosinophils % (Auto) 0.1 % (0.0-4.3); Hematocrit 37.8 % (35.5-45.6); Hemoglobin 13.3 gm/dl (11.8-15.2); Mean Corpuscular HGB Conc 35 % (32-34); Mean Corpuscular Hemoglobin 30 pg (28-32); Mean Corpuscular Volume 84 fl (84-94); Platelet Count 262 K/mm3 (140-440); Red Blood Count 4.49 M/mm3 (3.65-5.03); Red Cell Distribution Width 14.4 % (13.2-15.2); White Blood Count 10.8 K/mm3 (4.5-11.0)
[2016-10-05 06:25] LABS: BUN/Creatinine Ratio 26.25; Blood Urea Nitrogen 21 mg/dL (9-20); Calcium 8.3 mg/dL (8.4-10.2); Carbon Dioxide 26 mmol/L (22-30); Chloride 102.4 mmol/L (98-107); Glucose 124 mg/dL (75-100); Magnesium 1.8 mg/dL (1.7-2.3); Sodium 143 mmol/L (137-145)
[2016-10-05 06:26] LABS: Anion Gap 18 mmol/L
[2016-10-05] MEDS ORDERED: K-DUR PO ONE (09:08)
--- NOTE | 2016-10-05 09:15 | Progress Note ---
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% IV lasix and closely monitor -- NSTEMI; denies chest pain or shortness of breath Continue and management Cardiology following, not a candidate for any aggressive invasive workup -- Syncope at the time of admission Probably secondary to overusage of Xanax and Benadryl , no new episodes of syncope --Hypertension Well-controlled , continue current management --Paroxysmal atrial fibrillation Rate controlled, continue beta blockers, not a candidate for chronic anticoagulation, continue aspirin --Episode of nonsustained VT Probably secondary to severe congestive heart failure systolic dysfunction Now stable, cardiology following --DVT prophylaxis; with Lovenox --CODE STATUS discussed with the family at the bedside They requested DO NOT RESUSCITATE status Considers hospice/comfort care If no workup is warranted patient can be discharged home with home health versus half-way facility Discussed case management and family member History Interval history: Patient seen and evaluated medical records reviewed confused and agitated at times restraints for safety Vital signs reviewed, stable Hospitalist Physical - Constitutional Vitals: Temp Pulse Resp BP Pulse Ox 97.2 F L 102 H 18 121/71 99 10/05/16 07:19 10/05/16 07:28 10/05/16 07:28 10/05/16 07:19 10/05/16 07:29 General appearance: Present: no acute distress, well-nourished - EENT Eyes: Present: PERRL, EOM intact - Neck Neck: Present: supple, normal ROM - Respiratory Respiratory effort: normal Respiratory: bilateral: diminished, negative: rales, rhonchi, wheezing - Cardiovascular Rhythm: regular Heart Sounds: Present: S1 & S2 - Extremities Extremities: no ischemia, pulses intact, pulses symmetrical Peripheral Pulses: within normal limits - Abdominal General gastrointestinal: soft, non-tender, non-distended, normal bowel sounds - Integumentary Integumentary: Present: clear, warm - Psychiatric Psychiatric: appropriate mood/affect, agitated (confused) - Neurologic Neurologic: moves all extremities Results - Labs CBC & Chem 7: 10/05/16 04:41 10/05/16 04:41 Labs: Laboratory Last Values WBC 10.8 K/mm3 (4.5-11.0) 10/05/16 04:41 RBC 4.49 M/mm3 (3.65-5.03) 10/05/16 04:41 Hgb 13.3 gm/dl (11.8-15.2) 10/05/16 04:41 Hct 37.8 % (35.5-45.6) 10/05/16 04:41 MCV 84 fl (84-94) 10/05/16 04:41 MCH 30 pg (28-32) 10/05/16 04:41 MCHC 35 % (32-34) H 10/05/16 04:41 RDW 14.4 % (13.2-15.2) 10/05/16 04:41 Plt Count 262 K/mm3 (140-440) 10/05/16 04:41 Lymph % (Auto) 7.1 % (13.4-35.0) L 10/05/16 04:41 [place] % (Auto) 5.8 % (0.0-7.3) 10/05/16 04:41 Eos % (Auto) 0.1 % (0.0-4.3) 10/05/16 04:41 Baso % (Auto) 0.3 % (0.0-1.8) 10/05/16 04:41 Lymph # 0.8 K/mm3 (1.2-5.4) L 10/05/16 04:41 [place] # 0.6 K/mm3 (0.0-0.8) 10/05/16 04:41 Eos # 0.0 K/mm3 (0.0-0.4) 10/05/16 04:41 Baso # 0.0 K/mm3 (0.0-0.1) 10/05/16 04:41 Add Manual Diff Complete 10/04/16 05:57 Total Counted 100 10/04/16 05:57 Seg Neutrophils % 86.7 % (40.0-70.0) H 10/05/16 04:41 Seg Neuts % (Manual) 92.0 % (40.0-70.0) H 10/04/16 05:57 Band Neutrophils % 1.0 % 10/04/16 05:57 Lymphocytes % (Manual) 3.0 % (13.4-35.0) L 10/04/16 05:57 Reactive Lymphs % (Man) 0 % 10/04/16 05:57 Monocytes % (Manual) 2.0 % (0.0-7.3) 10/04/16 05:57 Eosinophils % (Manual) 0 % (0.0-4.3) 10/04/16 05:57 Basophils % (Manual) 0 % (0.0-1.8) 10/04/16 05:57 Metamyelocytes % 0 % 10/04/16 05:57 Myelocytes % 1.0 % 10/04/16 05:57 Promyelocytes % 1.0 % 10/04/16 05:57 Blast Cells % 0 % 10/04/16 05:57 Nucleated RBC % Not Reportable 10/04/16 05:57 Seg Neutrophils # 9.4 K/mm3 (1.8-7.7) H 10/05/16 04:41 Seg Neutrophils # Man 13.5 K/mm3 (1.8-7.7) H 10/04/16 05:57 Band Neutrophils # 0.1 K/mm3 10/04/16 05:57 Lymphocytes # (Manual) 0.4 K/mm3 (1.2-5.4) L 10/04/16 05:57 Abs React Lymphs (Man) 0.0 K/mm3 10/04/16 05:57 Monocytes # (Manual) 0.3 K/mm3 (0.0-0.8) 10/04/16 05:57 Eosinophils # (Manual) 0.0 K/mm3 (0.0-0.4) 10/04/16 05:57 Basophils # (Manual) 0.0 K/mm3 (0.0-0.1) 10/04/16 05:57 Metamyelocytes # 0.0 K/mm3 10/04/16 05:57 Myelocytes # 0.1 K/mm3 10/04/16 05:57 Promyelocytes # 0.1 K/mm3 10/04/16 05:57 Blast Cells # 0.0 K/mm3 10/04/16 05:57 WBC Morphology Not Reportable 10/04/16 05:57 Hypersegmented Neuts Not Reportable 10/04/16 05:57 Hyposegmented Neuts Not Reportable 10/04/16 05:57 Hypogranular Neuts Not Reportable 10/04/16 05:57 Smudge Cells Not Reportable 10/04/16 05:57 Toxic Granulation Not Reportable 10/04/16 05:57 Toxic Vacuolation Not Reportable 10/04/16 05:57 Dohle Bodies Not Reportable 10/04/16 05:57 Pelger-Huet Anomaly Not Reportable 10/04/16 05:57 Evonne Rods Not Reportable 10/04/16 05:57 Platelet Estimate Appears normal 10/04/16 05:57 Clumped Platelets Not Reportable 10/04/16 05:57 Plt Clumps, EDTA Not Reportable 10/04/16 05:57 Large Platelets Not Reportable 10/04/16 05:57 Giant Platelets Not Reportable 10/04/16 05:57 Platelet Satelliting Not Reportable 10/04/16 05:57 Plt Morphology Comment Not Reportable 10/04/16 05:57 RBC Morphology Not Reportable 10/04/16 05:57 Dimorphic RBCs Not Reportable 10/04/16 05:57 Polychromasia Not Reportable 10/04/16 05:57 Hypochromasia Not Reportable 10/04/16 05:57 Poikilocytosis 1+ 10/04/16 05:57 Anisocytosis 1+ 10/04/16 05:57 Microcytosis Few 10/04/16 05:57 Macrocytosis Not Reportable 10/04/16 05:57 Spherocytes Not Reportable 10/04/16 05:57 Pappenheimer Bodies Not Reportable 10/04/16 05:57 Sickle Cells Not Reportable 10/04/16 05:57 Target Cells Not Reportable 10/04/16 05:57 Tear Drop Cells Not Reportable 10/04/16 05:57 Ovalocytes Not Reportable 10/04/16 05:57 Helmet Cells Not Reportable 10/04/16 05:57 [place] Bodies Not Reportable 10/04/16 05:57 [place] Rings Not Reportable 10/04/16 05:57 [place] Cells Few 10/04/16 05:57 Bite Cells Not Reportable 10/04/16 05:57 Crenated Cell Not Reportable 10/04/16 05:57 Elliptocytes Not Reportable 10/04/16 05:57 Acanthocytes (Spur) Few 10/04/16 05:57 Rouleaux Not Reportable 10/04/16 05:57 Hemoglobin C Crystals Not Reportable 10/04/16 05:57 Schistocytes Not Reportable 10/04/16 05:57 Malaria parasites Not Reportable 10/04/16 05:57 Sonido Bodies Not Reportable 10/04/16 05:57 Hem Pathologist Commnt No 10/04/16 05:57 PT 13.5 Sec. (12.2-14.9) 10/04/16 05:57 INR 1.04 (0.87-1.13) 10/04/16 05:57 APTT 26.9 Sec. (24.2-36.6) 10/04/16 05:57 Heparin Anti-Xa Level 0.25 U.I./ml (0.3-0.7) L 09/26/16 00:50 Sodium 143 mmol/L (137-145) 10/05/16 04:41 Potassium 3.0 mmol/L (3.6-5.0) L 10/05/16 04:41 Chloride 102.4 mmol/L (98-107) 10/05/16 04:41 Carbon Dioxide 26 mmol/L (22-30) 10/05/16 04:41 Anion Gap 18 mmol/L 10/05/16 04:41 BUN 21 mg/dL (9-20) H 10/05/16 04:41 Creatinine 0.8 mg/dL (0.8-1.5) 10/05/16 04:41 Estimated GFR > 60 ml/min 10/05/16 04:41 BUN/Creatinine Ratio 26.25 % 10/05/16 04:41 Glucose 124 mg/dL (75-100) H 10/05/16 04:41 POC Glucose 213 (70-105) H 10/04/16 06:13 Lactic Acid 1.0 mmol/L (0.7-2.0) 09/25/16 06:52 Calcium 8.3 mg/dL (8.4-10.2) L 10/05/16 04:41 Magnesium 1.8 mg/dL (1.7-2.3) 10/05/16 04:41 Total Bilirubin 0.5 mg/dL (0.1-1.2) 10/02/16 06:44 AST 32 units/L (5-40) 10/02/16 06:44 ALT 22 units/L (7-56) 10/02/16 06:44 Alkaline Phosphatase 84 units/L (35-129) 10/02/16 06:44 Total Creatine Kinase 810 units/L (55-170) H 09/25/16 20:25 CK-MB (CK-2) 117.1 ng/mL (0.0-4.0) H 09/25/16 20:25 CK-MB (CK-2) Rel Index 14.4 (0-4) H 09/25/16 20:25 Troponin T 0.514 ng/mL (0.00-0.029) H* D 09/25/16 20:25 Total Protein 5.6 g/dL (6.3-8.2) L 10/02/16 06:44 Albumin 2.9 g/dL (3.9-5) L 10/02/16 06:44 Albumin/Globulin Ratio 1.1 % 10/02/16 06:44 Triglycerides 53 mg/dL (2-149) 09/25/16 09:47 Cholesterol 163 mg/dL (50-199) 09/25/16 09:47 LDL Cholesterol Direct 93 mg/dL (50-130) 09/25/16 09:47 HDL Cholesterol 60 mg/dL (40-59) H 09/25/16 09:47 Cholesterol/HDL Ratio 2.71 % 09/25/16 09:47 TSH 1.420 mlU/mL (0.270-4.200) 09/25/16 06:52 Urine Color Yellow (Yellow) 09/25/16 07:23 Urine Turbidity Cloudy (Clear) 09/25/16 07:23 Urine pH 7.0 (5.0-7.0) 09/25/16 07:23 Ur Specific [place] 1.017 (1.003-1.030) 09/25/16 07:23 Urine Protein <15 mg/dl mg/dL (Negative) 09/25/16 07:23 Urine Glucose (UA) 50 mg/dL (Negative) 09/25/16 07:23 Urine Ketones Neg mg/dL (Negative) 09/25/16 07:23 Urine Blood Neg (Negative) 09/25/16 07:23 Urine Nitrite Neg (Negative) 09/25/16 07:23 Urine Bilirubin Neg (Negative) 09/25/16 07:23 Urine Urobilinogen < 2.0 mg/dL (<2.0) 09/25/16 07:23 Ur Leukocyte Esterase Neg (Negative) 09/25/16 07:23 Urine WBC (Auto) < 1.0 /HPF (0.0-6.0) 09/25/16 07:23 Urine RBC (Auto) 4.0 /HPF (0.0-6.0) 09/25/16 07:23 U Epithel Cells (Auto) 2.0 /HPF (0-13.0) 09/25/16 07:23 Urine Bacteria (Auto) 2+ /HPF (Negative) 09/25/16 07:23 Amorphous Crystals 1+ 09/25/16 07:23 Urine Mucus Few /HPF 09/25/16 07:23 Salicylates < 0.3 mg/dL (2.8-20.0) L 09/25/16 03:56 Urine Opiates Screen Presumptive negative 09/25/16 07:23 Urine Methadone Screen Presumptive negative 09/25/16 07:23 Acetaminophen < 15.0 ug/mL (10.0-30.0) 09/25/16 03:56 Ur Barbiturates Screen Presumptive negative 09/25/16 07:23 Ur Phencyclidine Scrn Presumptive negative 09/25/16 07:23 Ur Amphetamines Screen Presumptive negative 09/25/16 07:23 U Benzodiazepines Scrn Presumptive negative 09/25/16 07:23 Urine Cocaine Screen Presumptive negative 09/25/16 07:23 U Marijuana (THC) Screen Presumptive negative 09/25/16 07:23 Drugs of Abuse Note Disclamer 09/25/16 07:23 Plasma/Serum Alcohol < 0.01 gm% (0-0.07) 09/25/16 03:56
[2016-10-05] MEDS ORDERED: K-DUR PO SCH (10:00)
[2016-10-05] MEDS: LOVENOX SUB-Q SCH (10:34)
[2016-10-05] MEDS: LASIX IV SCH (10:34)
[2016-10-05] MEDS: RisperDAL PO SCH ×2 (10:35→22:48)
[2016-10-05] MEDS: ASPIRIN PO SCH (10:42)
[2016-10-05] MEDS: LOPRESSOR PO SCH ×2 (10:43→22:49)
[2016-10-05] MEDS: ZESTRIL PO SCH (10:44)
[2016-10-05] MEDS: FLOMAX PO SCH (10:51)
--- NOTE | 2016-10-05 11:20 | Progress Note ---
Assessment and Plan The patient is not a candidate for invasive cardiac evaluation. Continue current management. - Patient Problems (1) Altered mental status Current Visit: Yes Status: Acute Qualifiers: Altered mental status type: unspecified Qualified Code(s): R41.82 - Altered mental status, unspecified (2) Acute non-ST elevation myocardial infarction (NSTEMI) Current Visit: Yes Status: Acute (3) Paroxysmal atrial tachycardia Current Visit: Yes Status: Acute (4) NSVT (nonsustained ventricular tachycardia) Current Visit: Yes Status: Acute (5) Cardiomyopathy Current Visit: Yes Status: Acute (6) Fall Current Visit: Yes Status: Acute Qualifiers: Encounter type: initial encounter Qualified Code(s): W19.XXXA - Unspecified fall, initial encounter Subjective Date of service: 10/05/16 Principal diagnosis: elevated troponin Interval history: The patient is resting in bed. He is less confused today. Sinus rhythm on the monitor. Short run of PAT noted overnight. Objective Last Vital Signs Temp 97.2 F L 10/05/16 07:19 Pulse 102 H 10/05/16 07:28 Resp 18 10/05/16 07:28 BP 122/71 10/05/16 10:44 Pulse Ox 99 10/05/16 07:29 - Physical Examination General: No Apparent Distress (pt. confused) HEENT: Positive: EOMI, Normocephaly, Mucus Membranes Moist Neck: Positive: neck supple, trachea midline Cardiac: Positive: Reg Rate and Rhythm, S1/S2 Lungs: Positive: clear to auscultation Neuro: Positive: Other (altered and agaitated) Abdomen: Positive: Soft, Active Bowel Sounds. Negative: Tender Skin: Positive: Clear. Negative: Rash Musculoskeletal: Normal Range of Motion Extremities: Present: normal. Absent: edema - Labs and Meds CBC 10/05/16 Range/Units 04:41 WBC 10.8 (4.5-11.0) K/mm3 RBC 4.49 (3.65-5.03) M/mm3 Hgb 13.3 (11.8-15.2) gm/dl Hct 37.8 (35.5-45.6) % Plt Count 262 (140-440) K/mm3 Lymph # 0.8 L (1.2-5.4) K/mm3 [place] # 0.6 (0.0-0.8) K/mm3 Eos # 0.0 (0.0-0.4) K/mm3 Baso # 0.0 (0.0-0.1) K/mm3 Comprehensive Metabolic Panel 10/05/16 Range/Units 04:41 Sodium 143 (137-145) mmol/L Potassium 3.0 L (3.6-5.0) mmol/L Chloride 102.4 (98-107) mmol/L Carbon Dioxide 26 (22-30) mmol/L BUN 21 H (9-20) mg/dL Creatinine 0.8 (0.8-1.5) mg/dL Glucose 124 H (75-100) mg/dL Calcium 8.3 L (8.4-10.2) mg/dL - Imaging and Cardiology EKG: image reviewed Echo: report reviewed (09/2016: moderate LVH, EF 25-30%, impaired relaxation ) - Telemetry EKG Rhythm: Sinus Rhythm - EKG Sinus rhythms and dysrhythmias: sinus tachycardia Repolarization changes or abnormalities: ST or T wave suggestive of ischemia Myocardial infarction: septal [place] (old age or ind
[2016-10-05] MEDS: HALDOL IM PRN (22:49)
[2016-10-06] MEDS: DUONEB 0.5 MG-3 MG/3 ML SOLN IH SCH ×4 (02:38→20:00)
[2016-10-06 06:35] LABS: Blood Urea Nitrogen 21 mg/dL (9-20); Carbon Dioxide 26 mmol/L (22-30); Chloride 103.8 mmol/L (98-107); Glucose 106 mg/dL (75-100); Potassium 3.5 mmol/L (3.6-5.0); Sodium 141 mmol/L (137-145)
[2016-10-06 06:36] LABS: Anion Gap 15 mmol/L
[2016-10-06] MEDS ORDERED: K-DUR PO SCH (10:00)
[2016-10-06] MEDS: RisperDAL PO SCH ×2 (11:00→21:44)
--- NOTE | 2016-10-06 11:31 | Progress Note ---
Addendum entered and electronically signed by HIEN MAGDALENO MD 10/06/16 12:20: I have seen and examined the patient and agree with the documentation below. Original Note: Assessment and Plan The patient is not a candidate for invasive cardiac evaluation. Continue current management. - Patient Problems (1) Altered mental status Current Visit: Yes Status: Acute Qualifiers: Altered mental status type: unspecified Qualified Code(s): R41.82 - Altered mental status, unspecified (2) Acute non-ST elevation myocardial infarction (NSTEMI) Current Visit: Yes Status: Acute (3) Paroxysmal atrial tachycardia Current Visit: Yes Status: Acute (4) NSVT (nonsustained ventricular tachycardia) Current Visit: Yes Status: Acute (5) Cardiomyopathy Current Visit: Yes Status: Acute (6) Fall Current Visit: Yes Status: Acute Qualifiers: Encounter type: initial encounter Qualified Code(s): W19.XXXA - Unspecified fall, initial encounter Subjective Date of service: 10/06/16 Principal diagnosis: elevated troponin Interval history: The patient is resting in bed. No acute distress noted. Sinus rhythm on the monitor. Objective Last Vital Signs Temp 98.6 F 10/06/16 07:32 Pulse 107 H 10/06/16 09:20 Resp 16 10/06/16 09:20 BP 108/54 10/06/16 07:32 Pulse Ox 91 10/06/16 09:09 - Physical Examination General: No Apparent Distress (pt. confused) HEENT: Positive: EOMI, Normocephaly, Mucus Membranes Moist Neck: Positive: neck supple, trachea midline Cardiac: Positive: Reg Rate and Rhythm, S1/S2 Lungs: Positive: Decreased Breath Sounds Neuro: Positive: Other (pt. somewhat confused) Abdomen: Positive: Soft, Active Bowel Sounds. Negative: Tender Skin: Positive: Clear. Negative: Rash Musculoskeletal: Normal Range of Motion Extremities: Present: normal. Absent: edema - Labs and Meds Comprehensive Metabolic Panel 10/06/16 Range/Units 04:36 Sodium 141 (137-145) mmol/L Potassium 3.5 L (3.6-5.0) mmol/L Chloride 103.8 (98-107) mmol/L Carbon Dioxide 26 (22-30) mmol/L BUN 21 H (9-20) mg/dL Creatinine 0.7 L (0.8-1.5) mg/dL Glucose 106 H (75-100) mg/dL Calcium 8.0 L (8.4-10.2) mg/dL - Imaging and Cardiology EKG: image reviewed Echo: report reviewed (09/2016: moderate LVH, EF 25-30%, impaired relaxation ) - Telemetry EKG Rhythm: Sinus Rhythm - EKG Sinus rhythms and dysrhythmias: sinus tachycardia Repolarization changes or abnormalities: ST or T wave suggestive of ischemia Myocardial infarction: septal [place] (old age or ind
[2016-10-06] MEDS: LOVENOX SUB-Q SCH (14:00)
[2016-10-06] MEDS: ASPIRIN PO SCH (14:00)
[2016-10-06] MEDS: FLOMAX PO SCH (14:03)
[2016-10-06] MEDS: LASIX IV SCH ×2 (14:04→14:31)
[2016-10-06] MEDS: LOPRESSOR PO SCH ×2 (14:06→21:44)
[2016-10-06] MEDS: ZESTRIL PO SCH (14:06)
--- NOTE | 2016-10-06 19:16 | Progress Note ---
Hospitalist Physical - Constitutional Vitals: Temp Pulse Resp BP Pulse Ox 97.2 F L 78 20 119/74 97 10/06/16 15:50 10/06/16 15:50 10/06/16 15:50 10/06/16 15:50 10/06/16 15:50 General appearance: Present: no acute distress, well-nourished Results - Labs CBC & Chem 7: 10/05/16 04:41 10/06/16 04:36 Labs: Laboratory Last Values WBC 10.8 K/mm3 (4.5-11.0) 10/05/16 04:41 RBC 4.49 M/mm3 (3.65-5.03) 10/05/16 04:41 Hgb 13.3 gm/dl (11.8-15.2) 10/05/16 04:41 Hct 37.8 % (35.5-45.6) 10/05/16 04:41 MCV 84 fl (84-94) 10/05/16 04:41 MCH 30 pg (28-32) 10/05/16 04:41 MCHC 35 % (32-34) H 10/05/16 04:41 RDW 14.4 % (13.2-15.2) 10/05/16 04:41 Plt Count 262 K/mm3 (140-440) 10/05/16 04:41 Lymph % (Auto) 7.1 % (13.4-35.0) L 10/05/16 04:41 [place] % (Auto) 5.8 % (0.0-7.3) 10/05/16 04:41 Eos % (Auto) 0.1 % (0.0-4.3) 10/05/16 04:41 Baso % (Auto) 0.3 % (0.0-1.8) 10/05/16 04:41 Lymph # 0.8 K/mm3 (1.2-5.4) L 10/05/16 04:41 [place] # 0.6 K/mm3 (0.0-0.8) 10/05/16 04:41 Eos # 0.0 K/mm3 (0.0-0.4) 10/05/16 04:41 Baso # 0.0 K/mm3 (0.0-0.1) 10/05/16 04:41 Add Manual Diff Complete 10/04/16 05:57 Total Counted 100 10/04/16 05:57 Seg Neutrophils % 86.7 % (40.0-70.0) H 10/05/16 04:41 Seg Neuts % (Manual) 92.0 % (40.0-70.0) H 10/04/16 05:57 Band Neutrophils % 1.0 % 10/04/16 05:57 Lymphocytes % (Manual) 3.0 % (13.4-35.0) L 10/04/16 05:57 Reactive Lymphs % (Man) 0 % 10/04/16 05:57 Monocytes % (Manual) 2.0 % (0.0-7.3) 10/04/16 05:57 Eosinophils % (Manual) 0 % (0.0-4.3) 10/04/16 05:57 Basophils % (Manual) 0 % (0.0-1.8) 10/04/16 05:57 Metamyelocytes % 0 % 10/04/16 05:57 Myelocytes % 1.0 % 10/04/16 05:57 Promyelocytes % 1.0 % 10/04/16 05:57 Blast Cells % 0 % 10/04/16 05:57 Nucleated RBC % Not Reportable 10/04/16 05:57 Seg Neutrophils # 9.4 K/mm3 (1.8-7.7) H 10/05/16 04:41 Seg Neutrophils # Man 13.5 K/mm3 (1.8-7.7) H 10/04/16 05:57 Band Neutrophils # 0.1 K/mm3 10/04/16 05:57 Lymphocytes # (Manual) 0.4 K/mm3 (1.2-5.4) L 10/04/16 05:57 Abs React Lymphs (Man) 0.0 K/mm3 10/04/16 05:57 Monocytes # (Manual) 0.3 K/mm3 (0.0-0.8) 10/04/16 05:57 Eosinophils # (Manual) 0.0 K/mm3 (0.0-0.4) 10/04/16 05:57 Basophils # (Manual) 0.0 K/mm3 (0.0-0.1) 10/04/16 05:57 Metamyelocytes # 0.0 K/mm3 10/04/16 05:57 Myelocytes # 0.1 K/mm3 10/04/16 05:57 Promyelocytes # 0.1 K/mm3 10/04/16 05:57 Blast Cells # 0.0 K/mm3 10/04/16 05:57 WBC Morphology Not Reportable 10/04/16 05:57 Hypersegmented Neuts Not Reportable 10/04/16 05:57 Hyposegmented Neuts Not Reportable 10/04/16 05:57 Hypogranular Neuts Not Reportable 10/04/16 05:57 Smudge Cells Not Reportable 10/04/16 05:57 Toxic Granulation Not Reportable 10/04/16 05:57 Toxic Vacuolation Not Reportable 10/04/16 05:57 Dohle Bodies Not Reportable 10/04/16 05:57 Pelger-Huet Anomaly Not Reportable 10/04/16 05:57 Evonne Rods Not Reportable 10/04/16 05:57 Platelet Estimate Appears normal 10/04/16 05:57 Clumped Platelets Not Reportable 10/04/16 05:57 Plt Clumps, EDTA Not Reportable 10/04/16 05:57 Large Platelets Not Reportable 10/04/16 05:57 Giant Platelets Not Reportable 10/04/16 05:57 Platelet Satelliting Not Reportable 10/04/16 05:57 Plt Morphology Comment Not Reportable 10/04/16 05:57 RBC Morphology Not Reportable 10/04/16 05:57 Dimorphic RBCs Not Reportable 10/04/16 05:57 Polychromasia Not Reportable 10/04/16 05:57 Hypochromasia Not Reportable 10/04/16 05:57 Poikilocytosis 1+ 10/04/16 05:57 Anisocytosis 1+ 10/04/16 05:57 Microcytosis Few 10/04/16 05:57 Macrocytosis Not Reportable 10/04/16 05:57 Spherocytes Not Reportable 10/04/16 05:57 Pappenheimer Bodies Not Reportable 10/04/16 05:57 Sickle Cells Not Reportable 10/04/16 05:57 Target Cells Not Reportable 10/04/16 05:57 Tear Drop Cells Not Reportable 10/04/16 05:57 Ovalocytes Not Reportable 10/04/16 05:57 Helmet Cells Not Reportable 10/04/16 05:57 [place] Bodies Not Reportable 10/04/16 05:57 [place] Rings Not Reportable 10/04/16 05:57 [place] Cells Few 10/04/16 05:57 Bite Cells Not Reportable 10/04/16 05:57 Crenated Cell Not Reportable 10/04/16 05:57 Elliptocytes Not Reportable 10/04/16 05:57 Acanthocytes (Spur) Few 10/04/16 05:57 Rouleaux Not Reportable 10/04/16 05:57 Hemoglobin C Crystals Not Reportable 10/04/16 05:57 Schistocytes Not Reportable 10/04/16 05:57 Malaria parasites Not Reportable 10/04/16 05:57 Sonido Bodies Not Reportable 10/04/16 05:57 Hem Pathologist Commnt No 10/04/16 05:57 PT 13.5 Sec. (12.2-14.9) 10/04/16 05:57 INR 1.04 (0.87-1.13) 10/04/16 05:57 APTT 26.9 Sec. (24.2-36.6) 10/04/16 05:57 Heparin Anti-Xa Level 0.25 U.I./ml (0.3-0.7) L 09/26/16 00:50 Sodium 141 mmol/L (137-145) 10/06/16 04:36 Potassium 3.5 mmol/L (3.6-5.0) L 10/06/16 04:36 Chloride 103.8 mmol/L (98-107) 10/06/16 04:36 Carbon Dioxide 26 mmol/L (22-30) 10/06/16 04:36 Anion Gap 15 mmol/L 10/06/16 04:36 BUN 21 mg/dL (9-20) H 10/06/16 04:36 Creatinine 0.7 mg/dL (0.8-1.5) L 10/06/16 04:36 Estimated GFR > 60 ml/min 10/06/16 04:36 BUN/Creatinine Ratio 30.00 % 10/06/16 04:36 Glucose 106 mg/dL (75-100) H 10/06/16 04:36 POC Glucose 213 (70-105) H 10/04/16 06:13 Lactic Acid 1.0 mmol/L (0.7-2.0) 09/25/16 06:52 Calcium 8.0 mg/dL (8.4-10.2) L 10/06/16 04:36 Magnesium 1.8 mg/dL (1.7-2.3) 10/05/16 04:41 Total Bilirubin 0.5 mg/dL (0.1-1.2) 10/02/16 06:44 AST 32 units/L (5-40) 10/02/16 06:44 ALT 22 units/L (7-56) 10/02/16 06:44 Alkaline Phosphatase 84 units/L (35-129) 10/02/16 06:44 Total Creatine Kinase 810 units/L (55-170) H 09/25/16 20:25 CK-MB (CK-2) 117.1 ng/mL (0.0-4.0) H 09/25/16 20:25 CK-MB (CK-2) Rel Index 14.4 (0-4) H 09/25/16 20:25 Troponin T 0.514 ng/mL (0.00-0.029) H* D 09/25/16 20:25 Total Protein 5.6 g/dL (6.3-8.2) L 10/02/16 06:44 Albumin 2.9 g/dL (3.9-5) L 10/02/16 06:44 Albumin/Globulin Ratio 1.1 % 10/02/16 06:44 Triglycerides 53 mg/dL (2-149) 09/25/16 09:47 Cholesterol 163 mg/dL (50-199) 09/25/16 09:47 LDL Cholesterol Direct 93 mg/dL (50-130) 09/25/16 09:47 HDL Cholesterol 60 mg/dL (40-59) H 09/25/16 09:47 Cholesterol/HDL Ratio 2.71 % 09/25/16 09:47 TSH 1.420 mlU/mL (0.270-4.200) 09/25/16 06:52 Urine Color Yellow (Yellow) 09/25/16 07:23 Urine Turbidity Cloudy (Clear) 09/25/16 07:23 Urine pH 7.0 (5.0-7.0) 09/25/16 07:23 Ur Specific [place] 1.017 (1.003-1.030) 09/25/16 07:23 Urine Protein <15 mg/dl mg/dL (Negative) 09/25/16 07:23 Urine Glucose (UA) 50 mg/dL (Negative) 09/25/16 07:23 Urine Ketones Neg mg/dL (Negative) 09/25/16 07:23 Urine Blood Neg (Negative) 09/25/16 07:23 Urine Nitrite Neg (Negative) 09/25/16 07:23 Urine Bilirubin Neg (Negative) 09/25/16 07:23 Urine Urobilinogen < 2.0 mg/dL (<2.0) 09/25/16 07:23 Ur Leukocyte Esterase Neg (Negative) 09/25/16 07:23 Urine WBC (Auto) < 1.0 /HPF (0.0-6.0) 09/25/16 07:23 Urine RBC (Auto) 4.0 /HPF (0.0-6.0) 09/25/16 07:23 U Epithel Cells (Auto) 2.0 /HPF (0-13.0) 09/25/16 07:23 Urine Bacteria (Auto) 2+ /HPF (Negative) 09/25/16 07:23 Amorphous Crystals 1+ 09/25/16 07:23 Urine Mucus Few /HPF 09/25/16 07:23 Salicylates < 0.3 mg/dL (2.8-20.0) L 09/25/16 03:56 Urine Opiates Screen Presumptive negative 09/25/16 07:23 Urine Methadone Screen Presumptive negative 09/25/16 07:23 Acetaminophen < 15.0 ug/mL (10.0-30.0) 09/25/16 03:56 Ur Barbiturates Screen Presumptive negative 09/25/16 07:23 Ur Phencyclidine Scrn Presumptive negative 09/25/16 07:23 Ur Amphetamines Screen Presumptive negative 09/25/16 07:23 U Benzodiazepines Scrn Presumptive negative 09/25/16 07:23 Urine Cocaine Screen Presumptive negative 09/25/16 07:23 U Marijuana (THC) Screen Presumptive negative 09/25/16 07:23 Drugs of Abuse Note Disclamer 09/25/16 07:23 Plasma/Serum Alcohol < 0.01 gm% (0-0.07) 09/25/16 03:56
[2016-10-07] MEDS: DUONEB 0.5 MG-3 MG/3 ML SOLN IH SCH ×3 (02:10→16:29)
--- NOTE | 2016-10-07 07:27 | Vascular Lab Report ---
CAROTID DUPLEX STUDY: RIGHT PSVEDV CCA PROX: 85 8 CCA DIST: 8010 ICA PROX:[id number] ICA MID: 9617 ICA DIST: 9617 ECA: 132 5 VERT: 51 9 LEFT PSVEDV CCA PROX:[id number] CCA DIST: 6511 ICA PROX: 6417 ICA MID: 6919 ICA DIST: 7718 ECA: 100 3 VERT: 41 10 REASON FOR EXAM: Carotid artery stenosis/syncope. COMMENTS ON THE RIGHT: Doppler frequency analysis is consistent with 16 to 49 percent diameter reduction of the internal carotid artery. Minimal amount of plaque is seen. The common carotid artery is patent. The external carotid artery is patent. The vertebral artery has antegrade flow. COMMENTS ON THE LEFT: Doppler frequency analysis is consistent with 16 to 49 percent diameter reduction of the internal carotid artery. Minimal amount of plaque is seen. The common carotid artery is patent. The external carotid artery is patent. The vertebral artery has antegrade flow. IMPRESSION: Less than 50% diameter reduction in the internal carotid arteries bilaterally. Consider repeat carotid artery duplex in 12 months.
[2016-10-07] MEDS: LOVENOX SUB-Q SCH (09:22)
[2016-10-07] MEDS: ASPIRIN PO SCH (09:22)
[2016-10-07] MEDS: RisperDAL PO SCH (09:22)
[2016-10-07] MEDS: FLOMAX PO SCH (09:22)
[2016-10-07] MEDS: LASIX IV SCH (09:24)
[2016-10-07] MEDS: LOPRESSOR PO SCH (09:28)
[2016-10-07] MEDS: ZESTRIL PO SCH (09:29)
[2016-10-07] MEDS ORDERED: K-DUR PO SCH (10:00)
--- NOTE | 2016-10-07 10:57 | Progress Note ---
Addendum entered and electronically signed by HIEN MAGDALENO MD 10/07/16 11:20: I have seen and examined the patient and agree with the documentation below. Continue metoprolol and a small dose of lisinopril. Original Note: Assessment and Plan The patient is not a candidate for invasive cardiac evaluation. Continue current management. - Patient Problems (1) Altered mental status Current Visit: Yes Status: Resolved Qualifiers: Altered mental status type: unspecified Qualified Code(s): R41.82 - Altered mental status, unspecified (2) Acute non-ST elevation myocardial infarction (NSTEMI) Current Visit: Yes Status: Acute (3) Paroxysmal atrial tachycardia Current Visit: Yes Status: Acute (4) NSVT (nonsustained ventricular tachycardia) Current Visit: Yes Status: Acute (5) Cardiomyopathy Current Visit: Yes Status: Acute (6) Fall Current Visit: Yes Status: Acute Qualifiers: Encounter type: initial encounter Qualified Code(s): W19.XXXA - Unspecified fall, initial encounter Subjective Date of service: 10/07/16 Principal diagnosis: elevated troponin Interval history: The patient is resting in bed. He is awake and alert. No complaints. Sinus rhythm on the monitor. Objective Last Vital Signs Temp 98.0 F 10/07/16 10:23 Pulse 89 10/07/16 10:23 Resp 16 10/07/16 10:23 BP 107/52 10/07/16 10:23 Pulse Ox 94 10/07/16 10:23 - Physical Examination General: No Apparent Distress HEENT: Positive: EOMI, Normocephaly, Mucus Membranes Moist Neck: Positive: neck supple, trachea midline Cardiac: Positive: Reg Rate and Rhythm, S1/S2 Lungs: Positive: clear to auscultation Neuro: Positive: Grossly Intact Abdomen: Positive: Soft, Active Bowel Sounds. Negative: Tender Skin: Positive: Clear. Negative: Rash Musculoskeletal: Normal Range of Motion Extremities: Present: normal. Absent: edema - Imaging and Cardiology EKG: image reviewed Echo: report reviewed (09/2016: moderate LVH, EF 25-30%, impaired relaxation ) - Telemetry EKG Rhythm: Sinus Rhythm - EKG Sinus rhythms and dysrhythmias: sinus tachycardia Repolarization changes or abnormalities: ST or T wave suggestive of ischemia Myocardial infarction: septal [place] (old age or ind
--- NOTE | 2016-10-07 12:08 | Discharge Summary ---
Providers - Providers Date of Admission: 09/25/16 14:28 Date of discharge: 10/07/16 Attending physician: EVELIA PORTER 09/29/16 08:39 Consult to Physician [CONS] Routine Consulting Provider: JANNETH ORELLANA Reason For Exam: AMS & psychosis Place consult to:: Dr. Orellana Notified:: jose BOSWELL Phone number called:: Was contact made?: Yes If yes, spoke with:: [facility] Time called:: 08:45 09/29/16 08:47 Consult to Mental Health [CONS] Routine Reason For Exam: AMS & psychosis Place consult to:: Mental Health Notified:: Jose BOSWELLcomplex care nurse practitioner physician: SCHEDULING ANALYST Hospitalization Condition: Fair Disposition: DC/[place] SNF [facility] Time spent for discharge: 35 min Exam - Constitutional Vitals: Temp Pulse Resp BP Pulse Ox 98.0 F 89 16 107/52 94 10/07/16 10:23 10/07/16 10:23 10/07/16 10:23 10/07/16 10:23 10/07/16 10:23 Plan Activity: advance as tolerated, fall precautions Diet: low cholesterol, low salt Follow up with: PRIMARY CARE,MD [Primary Care Provider] - 3-5 Days Prescriptions: AtorvaSTATin [Lipitor] 40 mg PO QHS #30 tablet Aspirin [Aspirin TAB] 325 mg PO QDAY #30 tablet Lactulose [Cephulac] 20 gm PO QDAY PRN #90 ml PRN Reason: Constipation Docusate Sodium [Colace CAP] 100 mg PO BID PRN #30 capsule PRN Reason: Constipation Tamsulosin [Flomax] 0.4 mg PO QDAY #30 capsule Potassium Chloride [K-Dur] 20 meq PO QDAY #30 tablet Furosemide [Lasix] 20 mg PO QDAY #30 tablet Metoprolol [Lopressor TAB] 50 mg PO BID #60 tablet risperiDONE [RisperDAL] 0.5 mg PO BID #60 tablet traMADol [Ultram 50 MG tab] 50 mg PO Q6HR PRN #20 tablet PRN Reason: Pain Lisinopril [Zestril TAB] 5 mg PO QDAY #30 tablet
[2016-10-07 17:42] VITALS: BP 100/58
[2016-10-08] MEDS ORDERED: ZESTRIL PO SCH (10:00)
== END 2016-10-07 18:37 | DRG 280 ==
LOC: ED 03:05 → 4A 14:28
PROVIDERS: ADMIT Internal Medicine; ATTEND Internal Medicine
DX: I21.4 Non-ST elevation (NSTEMI) myocardial infarction (principal); G93.41 Metabolic encephalopathy; F23 Brief psychotic disorder; F19.921 Other psychoactive substance use, unspecified with intoxication with delirium; I42.9 Cardiomyopathy, unspecified; I47.2 Ventricular tachycardia; T42.4X1A Poisoning by benzodiazepines, accidental (unintentional), initial encounter; I10 Essential (primary) hypertension; C61 Malignant neoplasm of prostate; K59.09 Other constipation; E87.6 Hypokalemia; W18.39XA Other fall on same level, initial encounter; I48.0 Paroxysmal atrial fibrillation; M19.90 Unspecified osteoarthritis, unspecified site; Z90.89 Acquired absence of other organs; Y93.89 Activity, other specified; Y92.89 Other specified places as the place of occurrence of the external cause; Y99.8 Other external cause status; Z88.5 Allergy status to narcotic agent; Y92.9 Unspecified place or not applicable
CPT/HCPCS: 36415; 70450; 71010; 72125; 72170; 80048; 80053; 80061; 80301; 80320; 81001; 82140; 82550; 82553; 82962; 83735; 84132; 84443; 84484; 85007; 85014; 85018; 85025; 85049; 85520; 85610; 85730; 93005; 93010; 93306; 93880; 94640; 94760; 95819; 96361; 96372; 96374; 96375; 96376; A9270-GY; G0479; G0480; J1200; J1630; J1644; J1650; J1940; J2060; J2270; J2405; J3475; J3480; J7030